=== PATIENT | male | born 1960 | race African-American/Black ===

== ENCOUNTER 2021-03-18 15:11 | Inpatient (IN) | payer MEDICARE ==
[~2021-03-18] VITALS: Ht 182.9 cm; Wt 98.6 kg
[2021-03-18 14:27] VITALS: BP 138/66
[2021-03-18] MEDS ORDERED: ATOR80TA72 PO (15:23)
[2021-03-18] MEDS ORDERED: BUME1TAB3 PO (15:23)
[2021-03-18] MEDS ORDERED: SPIR50TA4 PO (15:23)
[2021-03-18] MEDS ORDERED: CITA20TA6 PO (15:23)
[2021-03-18] MEDS ORDERED: RISP3TAB23 PO (15:23)
[2021-03-18] MEDS ORDERED: CARV25TA2 PO (15:23)
--- NOTE | 2021-03-18 15:55 | NUR ---
ADMISSION PT ARRIVED VIA EMS FROM [facility] ER. HE ARRIVES WITH IV POTASSIUM AND A HEPARIN GTT. HE TRANSFERS FROM [facility] TO [facility] VIA SHEET TRANSFER. TELE APPLIED, ET VS ASSESSED. SEE ASSESSMENT FOR ADDITIONAL DETAIL.
[2021-03-18 15:57] VITALS: BP 138/66
[2021-03-18] MEDS ORDERED: HEPARIN for IV BOLUS 10,000 UNIT/10 ML VIAL. IV PRN ×2 (16:00)
[2021-03-18] MEDS ORDERED: HEPARIN 25,000UTS/250ML PREMIX 250 ML IV PRN (16:00)
[2021-03-18 18:34] VITALS: BP 122/65
[2021-03-18 23:00] VITALS: BP 127/63
[2021-03-19 03:00] VITALS: BP 111/51
[2021-03-19 07:00] VITALS: BP 104/57
[2021-03-19] MEDS ORDERED: ASPIRIN ENTERIC COATED 81 MG TABLET.DR. PO SCH (08:00)
--- NOTE | 2021-03-19 10:45 | PDOC2 ---
CONSULT Date of Consult Date of Consult DATE: 03/19/21 TIME: 10:25 Reason for Consult Reason for Consult: CVA, right carotid dissection, bilateral common carotid stenosis Referring Physician Referring Physician: Dr. Gallo Identification/Chief Complaint Chief Complaint Right-sided weakness and slurred speech Source Source: Patient History of Present Illness Reason for Visit: This is a 60-year-old male presented with acute right-sided weakness and slurred speech that started yesterday afternoon. He presented to [facility] emergency room where code stroke was activated. He reports that his right-sided weakness has essentially resolved since its onset as well as his speech has improved but there is still some persistent slurring. It took several hours for the weakness to improve. He typically takes a baby aspirin but states that he may have stopped this recently. He has a history of a left carotid endarterectomy in 2013 at [facility] he also reports having a blood clot clot removed at that time although the intervention performed is not clear based on our discussion. He did not have a stroke prior to his carotid endarterectomy per his report. This is his first stroke event. He denies any preceding history of transient blindness. He does smoke and is still actively smoking up to a pack a day. He does take a statin for cholesterol. He denies any history of diabetes. He is ambulatory without significant limitation at baseline. Past Medical History Cardiovascular: HTN, Hyperlipidemia CENTRAL NERVOUS SYSTEM: Other (Carotid stenosis) GI: No pertinent hx Heme/Onc: No pertinent hx Hepatobiliary: No pertinent hx Psych: Depression Musculoskeletal: No pain Rheumatologic: No pertinent hx Infectious disease: No pertinent hx ENT: No pertinent hx Renal/: No pertinent hx Endocrine: No pertinent hx Dermatology: No pertinent hx Past Surgical History Past Surgical History Left carotid endarterectomy "Blood clot removed after surgery" in 2013 at [facility] Family History Family History: Hypertension Social History 1 pack per day ALCOHOL: rare Current Medications Current Medications Current Medications Info (FLU VACCINE SCREEN per RX) 1 each 1X MC ; Start 03/19/21 at 15:45; Stop 03/19/21 at 07:28; Status DC Heparin Sodium/ Dextrose 250 ml @ 15.7 mls/hr CONT PRN IV PER PROTOCOL Last administered on 03/19/21at 04:48; Start 03/18/21 at 16:00 Heparin Sodium (Porcine) (Heparin Sodium) 2,950 unit PRN Q6HRS PRN IV FOR UFH LEVEL LESS THAN 0.2; Start 03/18/21 at 16:00 Heparin Sodium (Porcine) (Heparin Sodium) 1,450 unit PRN Q6HRS PRN IV FOR UFH LEVEL 0.2 - 0.29; Start 03/18/21 at 16:00 Aspirin (Ecotrin) 81 mg DAILYWBKFT PO ; Start 03/19/21 at 08:00 Influenza Virus Vaccine Quadrival (Flulaval Quad Syringe) 0.5 ml ONCE ONCE VAX IM ; Start 03/20/21 at 09:00; Stop 03/20/21 at 09:01 Active Scripts Active Reported Bumetanide 1 Mg Tablet 1 Mg PO BID Risperdal (Risperidone) 3 Mg Tablet 3 Mg PO QHS Carvedilol 25 Mg Tablet 12.5 Mg PO BIDWMEALS Spironolactone 50 Mg Tablet 50 Mg PO DAILY Citalopram Hbr (Citalopram Hydrobromide) 20 Mg Tablet 20 Mg PO DAILY Atorvastatin Calcium 80 Mg Tablet 80 Mg PO QHS Allergies Allergies: Coded Allergies: No Known Drug Allergies (Unverified , 03/18/21) ROS General: No: Chills, Night Sweats, Fatigue, Malaise, Appetite, Other PSYCHOLOGICAL ROS: YES: Depression Eyes: No Blurry vision, No Decreased vision, No Double vision, No Dry eyes, No Excessive tearing, No Eye Pain, No Itchy Eyes, No Loss of vision, No Photophobia, No Scotomata, No Uses contacts, No Uses glasses, No Other HEENT: YES: Vocal changes ALLERGY AND IMMUNOLOGY: No: Hives, Insect Bite Sensitivity, Itchy/Watery Eyes, Nasal Congestion, Post Nasal Drip, Seasonal Allergies, Other Hematological and Lymphatic: YES: Blood Clots ENDOCRINE: No: Breast Changes, Galactorrhea, Hair Pattern Changes, Hot Flashes, Malaise/lethargy, Mood Swings, Palpitations, Polydipsia/polyuria, Skin Changes, Temperature Intolerance, Unexpected Weight Changes, Other Respiratory: No: Cough, Hemoptysis, Orthopnea, Pleuritic Pain, Shortness of luisana ath, SOB with excertion, Sputum Changes, Stridor, Tachypnea, Wheezing, Other Cardiovascular: No Chest Pain, No Palpitations, No Orthopnea, No Paroxysmal Noc. Dyspnea, No Edema, No Lt Headedness, No Other Gastrointestinal: No Nausea, No Vomiting, No Abdominal Pain, No Diarrhea, No Constipation, No Melena, No Hematochezia, No Other Genitourinary: No Dysuria, No Frequency, No Incontinence, No Hematuria, No Retention, No Discharge, No Urgency, No Pain, No Flank Pain, No Other, No , No , No , No , No , No , No Musculoskeletal: No Gait Disturbance, No Joint Pain, No Joint Stiffness, No Joint Swelling, No Muscle Pain, No Muscular Weakness, No Pain In:, No Swelling In:, No Other Physical Exam General: Alert, Oriented X3, No acute distress HEENT: Atraumatic, EOMI, Other (Previous left carotid incision well healed, normal range of motion with good extension of the neck, tongue midline) Lungs: Normal air movement Heart: Regular rate, Other (2+ palpable radial and femoral pulses bilaterally. Bilateral carotid pulses palpable. Nonpalpable popliteal and pedal pulses bilaterally.) Abdomen: Soft, No tenderness Skin: No rashes, No significant lesion Neuro: Normal gait, Strength at 5/5 X4 ext, Sensation intact, Cranial nerves 3- 12 NL, Other (Slurring of speech but able to speak coherently) Psych/Mental Status: Mental status NL MUSCULOSKELETAL: No deformity, No swelling Vitals VITALS Vital Signs Date Time Temp Pulse Resp B/P (MAP) Pulse Ox O2 Delivery O2 Flow Rate FiO2 03/19/21 07:00 98.1 68 18 104/57 (73) 94 Nasal Cannula 2.0 98.1 Labs Labs Laboratory Tests Test 03/18/21 20:10 03/19/21 02:50 Heparin Anti-Xa Act, Unfractionated 0.98 IU/mL (0.30-0.70) 1.03 IU/mL (0.30-0.70) Triglycerides Level 97 mg/dL (0-150) Cholesterol Level 121 mg/dL (0-200) LDL Cholesterol, Calculated 72 mg/dL (0-100) VLDL Cholesterol, Calculated 19 mg/dL (0-40) Non-HDL Cholesterol Calculated 91 mg/dL (0-129) HDL Cholesterol 30 mg/dL (40-60) Cholesterol/HDL Ratio 4.0 Laboratory Tests Test 03/18/21 20:10 03/19/21 02:50 Heparin Anti-Xa Act, Unfractionated 0.98 IU/mL (0.30-0.70) 1.03 IU/mL (0.30-0.70) Triglycerides Level 97 mg/dL (0-150) Cholesterol Level 121 mg/dL (0-200) LDL Cholesterol, Calculated 72 mg/dL (0-100) VLDL Cholesterol, Calculated 19 mg/dL (0-40) Non-HDL Cholesterol Calculated 91 mg/dL (0-129) HDL Cholesterol 30 mg/dL (40-60) Cholesterol/HDL Ratio 4.0 Images Images CTA reviewed of the head and neck which demonstrates 60% stenosis of the left common carotid artery with diffuse calcific atherosclerotic plaque there is a normal section of left common carotid just above the clavicle. The left carotid bifurcation is free of disease from previous endarterectomy his left vertebral origin is free of disease and he has a dominant left vertebral artery. His right common carotid artery is also diseased with a small focal dissection and 60% stenosis as well. There is also a moderate stenosis of the right internal carotid artery at the bifurcation. Assessment/Plan Assessment/Plan 1. Right sided weakness and slurred speech, presumed Left sided CVA. 2. Moderate stenosis bilateral CCA, left CCA likely symptomatic lesion 3. HTN 4. Tobacco abuse 5. HLD 6. Moderate stenosis right ICA Patient needs MRI to further evaluate extent of CVA. Patient needs echocardiogram and cardiology consultation to evaluate for cardioembolic source. If no evidence of cardioembolic source would recommend proceeding with left common carotid artery intervention within the next 14 days to reduce his risk of recurrent stroke. Redo left common carotid artery endarterectomy could be considered given his young age and smoking status. Transfemoral carotid artery stenting of the common carotid artery is another consideration and would carry a lower risk of cranial nerve injury however may carry a higher risk of intervention. We will obtain operative records from [facility] to aid with operative planning and decision making. We will plan intervention once above work-up completed. We will stop heparin and start dual antiplatelet therapy with aspirin and Plavix and Plavix load. Recommend continuing statin therapy XANDER MARIA MD Mar 19, 2021 10:45
[2021-03-19] MEDS ORDERED: CLOPIDOGREL BISULFATE 75 MG TABLET PO ONE (11:00)
--- NOTE | 2021-03-19 11:58 | PDOC2 ---
ML ARCE STRATEGIC CONSULTANT 03/19/21 1158: CARDIAC CONSULT DATE OF CONSULT Date of Consult DATE: 03/19/21 TIME: 11:23 REASON FOR CONSULT Reason for Consult: CVA, eval for cardioembolic source REFERRING PHYSICIAN Referring Physician: Avni SOURCE Source: Chart review, Patient HISTORY OF PRESENT ILLNESS HISTORY OF PRESENT ILLNESS This is a 60 yo male admitted for for stroke symptoms. This was right sided weakness and slurred speech started 03/18/2021. Initially he was at [facility]. He was driving and just did not feel right as his righ hand was not moving right. He started having slurred speech. No complains of chest pain, SOA, palpitations or dizziness. No prior hx of CAD nor stroke but had LCEA in 2012. No recreational drug use but continues to smoke tobacco. His right sided weakness is better and no further slurred speech. He has been vaccinated for covid-19 PAST MEDICAL HISTORY Cardiovascular: HTN, Hyperlipidemia, Other (carotid artery disease) Pulmonary: No pertinent hx CENTRAL NERVOUS SYSTEM: Other (No pertinent history) Psych: Depression Musculoskeletal: Osteoarthritis Rheumatologic: No pertinent hx Infectious disease: No pertinent hx ENT: No pertinent hx Renal/: No pertinent hx Endocrine: No pertinent hx Dermatology: No pertinent hx PAST SURGICAL HISTORY Past Surgical History: Other (left carotid endarterectomy; neck surgery; unclear details RLE clot removal) FAMILY HISTORY Family History: Heart Disease (sisters) SOCIAL HISTORY Smoke: <1 pack per day ALCOHOL: none Drugs: None Lives: with Family CURRENT MEDICATIONS CURRENT MEDICATIONS Current Medications Medications (Trade) Dose Ordered Sig/Madhu Route PRN Reason Start Time Stop Time Status Last Admin Dose Admin Heparin Sodium/ Dextrose 250 ml @ 15.7 mls/hr CONT PRN IV PER PROTOCOL 03/18/21 16:00 03/19/21 10:46 DC 03/19/21 04:48 ALLERGIES ALLERGIES: Coded Allergies: No Known Drug Allergies (Unverified , 03/18/21) ROS Review of System 14 point ROS evaluated with pertinent positives noted per HPI PHYSICAL EXAM General: Alert, Oriented X3, Cooperative, No acute distress HEENT: Atraumatic, Mucous membr. moist/pink Lungs: Clear to auscultation, Normal air movement Heart: Regular rate (SR), Normal S1, Normal S2, No murmurs Abdomen: Soft, No tenderness Extremities: No cyanosis, No edema Skin: No breakdown, No significant lesion Neuro: Normal speech, Sensation intact Psych/Mental Status: Mental status NL, Mood NL MUSCULOSKELETAL: Osteoarthritic changes both hands VITALS/I&O VITALS/I&O: Vital Signs Date Time Temp Pulse Resp B/P (MAP) Pulse Ox O2 Delivery O2 Flow Rate FiO2 03/19/21 07:00 98.1 68 18 104/57 (73) 94 Nasal Cannula 2.0 98.1 I & O 03/18/21 03/18/21 03/19/21 15:00 23:00 07:00 Intake Total 0 ml Output Total 700 ml 775 ml Balance -700 ml -775 ml LABS Lab: Laboratory Tests Test 03/18/21 20:10 03/19/21 02:50 Heparin Anti-Xa Act, Unfractionated 0.98 IU/mL (0.30-0.70) H 1.03 IU/mL (0.30-0.70) H Triglycerides Level 97 mg/dL (0-150) Cholesterol Level 121 mg/dL (0-200) LDL Cholesterol, Calculated 72 mg/dL (0-100) VLDL Cholesterol, Calculated 19 mg/dL (0-40) Non-HDL Cholesterol Calculated 91 mg/dL (0-129) HDL Cholesterol 30 mg/dL (40-60) L Cholesterol/HDL Ratio 4.0 ASSESSMENT/PLAN ASSESSMENT/PLAN 1. suspect Acute CVA with dysarthria and right side hemiparesis. Appears to be resolved. possibly from significant carotid artery disease 2. HTN: controlled 3. HLP 4. Hx of left carotid endarterectomy 5. Carotid artery disease: significant to left than right, will likely need surgery 6. Tobaccoism with possible COPD Recommendations 1. On ASA/plavix when able to swallow, on heparin drip per vascular surgery. Consult neurology 2. TTE with bubble study. Awaiting MRI. Monitor rhythm, no arrhythmia so far. 3. FLP will start on statin 4. Cardiac risk index low to moderate risk for perioperative CV events for noncardiac surgery 5. MCOT is a consideration ELBA AUGUSTIN MD 03/20/21 6932: CARDIAC CONSULT ASSESSMENT/PLAN ASSESSMENT/PLAN Patient seen and examined 03/19/2021. Agree with [employer] ERP DEVELOPER's assessment and plan. Patient with acute left MCA stroke Telemetry did not show any significant arrhythmias so far 2D echo showed normal LV systolic function and bubble study negative for intracardiac shunt Carotid duplex scan showed significant carotid artery stenosis Vascular surgery considering possible endarterectomy in 2 weeks Thank you for your consultation ML ARCE APRN Mar 19, 2021 11:58 ELBA AUGUSTIN MD Mar 20, 2021 08:32
--- NOTE | 2021-03-19 12:27 | RAD ---
EXAMINATION: MRI brain without IV contrast INDICATION: Reason: CVA, aphasia / Spl. Instructions: / History: COMPARISON: None TECHNIQUE: Multiplanar multi-sequential MRI of the brain. FINDINGS: There is an area of restricted diffusion in the left MCA distribution involving the left parietal ope rculum consistent with acute infarct. There is expected associated edema corresponding to the area of acute infarct. There is no evidence of hemorrhage. There is no significant mass effect or midline sh ift. The ventricles are normal in size and position. There is no evidence of extraaxial fluid collect ion. Expected arterial flow-voids are present. There is no abnormal contrast enhancement. The paranasal sinuses, mastoid air cells, and middle ears are clear. The orbital contents appear with in normal limits. IMPRESSION: Acute infarct in the left MCA distribution involving the left parietal operculum area. These findings were discussed with the patient's nurse at 12:19 PM on 03/19/[address] Linder. Electronically signed by: Eyad Linder DO (03/19/2021 12:25 PM) [facility]
--- NOTE | 2021-03-19 12:38 | PDOC2 ---
NEUROLOGY CONSULT Date of Service DOS: DATE: 03/19/21 TIME: 12:38 Reason for Consult Reason for Consult: Possible stroke Referring Physician Referring Physician: Dr. Gallo Source Source: Chart review, Patient History of Present Illness History of Present Illness The patient is a 60-year-old right-handed male who presented yesterday to [facility] emergency department found by family members with dysarthria and right- sided weakness. Last known normal was evening of 03/17. Family told Dr. Lindquist that there is a history of stroke. Patient denies any history of stroke. He is feeling much better today. He wants to go home. He did have abnormal CT angiogram and was placed on heparin at recommendation of vascular surgery. Patient denies headache, diplopia, dysphagia, dysarthria, numbness, or weakness at present. There was never any neck pain, particularly on the right side of the neck, he has had no recent neck injury. He has not been taking aspirin daily for several months, he is supposed to take it for his cardiac disease, he understands. He has been taking his cholesterol medication faithfully, though. Past Medical History Cardiovascular: CAD, CHF Psych: Schizophrenia Past Surgical History Past Surgical History: Other (Left carotid endarterectomy) Family History Family History: CAD Social History Social History Disabled due to schizophrenia, no alcohol or tobacco, lives on his own, family checks on him Current Medications Current Medications Current Medications Info (FLU VACCINE SCREEN per RX) 1 each 1X MC ; Start 03/19/21 at 15:45; Stop 03/19/21 at 07:28; Status DC Heparin Sodium/ Dextrose 250 ml @ 15.7 mls/hr CONT PRN IV PER PROTOCOL Last administered on 03/19/21at 04:48; Start 03/18/21 at 16:00; Stop 03/19/21 at 10:46; Status DC Heparin Sodium (Porcine) (Heparin Sodium) 2,950 unit PRN Q6HRS PRN IV FOR UFH LEVEL LESS THAN 0.2; Start 03/18/21 at 16:00; Stop 03/19/21 at 10:46; Status DC Heparin Sodium (Porcine) (Heparin Sodium) 1,450 unit PRN Q6HRS PRN IV FOR UFH LEVEL 0.2 - 0.29; Start 03/18/21 at 16:00; Stop 03/19/21 at 10:46; Status DC Aspirin (Ecotrin) 81 mg DAILYWBKFT PO ; Start 03/19/21 at 08:00 Influenza Virus Vaccine Quadrival (Flulaval Quad Syringe) 0.5 ml ONCE ONCE VAX IM ; Start 03/20/21 at 09:00; Stop 03/20/21 at 09:01 Clopidogrel Bisulfate (Plavix) 300 mg 1X ONCE PO ; Start 03/19/21 at 11:00; Stop 03/19/21 at 11:01; Status DC Clopidogrel Bisulfate (Plavix) 75 mg DAILYWBKFT PO ; Start 03/20/21 at 08:00 Atorvastatin Calcium (Lipitor) 40 mg QHS PO ; Start 03/19/21 at 21:00 Active Scripts Active Reported Bumetanide 1 Mg Tablet 1 Mg PO BID Risperdal (Risperidone) 3 Mg Tablet 3 Mg PO QHS Carvedilol 25 Mg Tablet 12.5 Mg PO BIDWMEALS Spironolactone 50 Mg Tablet 50 Mg PO DAILY Citalopram Hbr (Citalopram Hydrobromide) 20 Mg Tablet 20 Mg PO DAILY Atorvastatin Calcium 80 Mg Tablet 80 Mg PO QHS Allergies Allergies: Coded Allergies: No Known Drug Allergies (Unverified , 03/18/21) ROS Review of System Negative for fever, chills, weight loss, shortness of breath, chest pain, indigestion, hematochezia, melena, and dysuria. Full 14-point review of systems is negative. Physical Exam Physical Examination General: Well-developed, well-nourished, black male, in no acute distress HEENT: Normocephalic andatraumatic. Temporal arteriespulsatile and nontender. Neck: Supple without bruit, no meningismus Musculoskeletal: Stability:see neurologic. Gait exam:see neurologic. Tone:see neurologic.Strength:see neurologic. Neurological: Mental Status:intact, orientation, memory, attention span/concentration, language, fund of knowledge normal. Speech dysarthric. Poor historian. Cranial Nerves:Pupils equal and reactive to light, extraocular movements areintact, visual adams are full to confrontation. Facial sensation is normal. There is no facial asymmetry. Vestibulo-ocular reflex is intact. Palate elevates and tongue protrudes in midline. All other cranial related problems are negative except as mentioned before.Reflexes:2+ and symmetric with flexor plantar responses. Motor:5/5 strength with normal tone and bulk. Slight right pronator drift. Coordination:Finger-nose finger and nqmi-ct-qkyn testing are normal. Rapid alternating movements and fine finger movements are intact. Gait:Normal, including tandem. Sensory:Normal pinprick, vibration, light touch, proprioception. Vitals VITALS Vital Signs Date Time Temp Pulse Resp B/P (MAP) Pulse Ox O2 Delivery O2 Flow Rate FiO2 03/19/21 07:00 98.1 68 18 104/57 (73) 94 Nasal Cannula 2.0 98.1 Labs Labs Laboratory Tests Test 03/18/21 20:10 03/19/21 02:50 Heparin Anti-Xa Act, Unfractionated 0.98 IU/mL (0.30-0.70) 1.03 IU/mL (0.30-0.70) Triglycerides Level 97 mg/dL (0-150) Cholesterol Level 121 mg/dL (0-200) LDL Cholesterol, Calculated 72 mg/dL (0-100) VLDL Cholesterol, Calculated 19 mg/dL (0-40) Non-HDL Cholesterol Calculated 91 mg/dL (0-129) HDL Cholesterol 30 mg/dL (40-60) Cholesterol/HDL Ratio 4.0 Laboratory Tests Test 03/18/21 20:10 03/19/21 02:50 Heparin Anti-Xa Act, Unfractionated 0.98 IU/mL (0.30-0.70) 1.03 IU/mL (0.30-0.70) Triglycerides Level 97 mg/dL (0-150) Cholesterol Level 121 mg/dL (0-200) LDL Cholesterol, Calculated 72 mg/dL (0-100) VLDL Cholesterol, Calculated 19 mg/dL (0-40) Non-HDL Cholesterol Calculated 91 mg/dL (0-129) HDL Cholesterol 30 mg/dL (40-60) Cholesterol/HDL Ratio 4.0 Images Images MRI brain without IV contrast INDICATION: Reason: CVA, aphasia / Spl. Instructions: / History: COMPARISON: None TECHNIQUE: Multiplanar multi-sequential MRI of the brain. FINDINGS: There is an area of restricted diffusion in the left MCA distribution involving the left parietal operculum consistent with acute infarct. There is expected associated edema corresponding to the area of acute infarct. There is no evidence of hemorrhage. There is no significant mass effect or midline shift. The ventricles are normal in size and position. There is no evidence of extraaxial fluid collection. Expected arterial flow-voids are present. There is no abnormal contrast enhancement. The paranasal sinuses, mastoid air cells, and middle ears are clear. The orbital contents appear within normal limits. IMPRESSION: Acute infarct in the left MCA distribution involving the left parietal operculum area. These findings were discussed with the patient's nurse at 12:19 PM on 03/19/[address] [facility]: CT HEAD INDICATION: Reason: CODE STROKE, FACIAL DROOP, SLURRED SPEECH / Spl. Instructions: / History: COMPARISON: None Available. Exposure: One or more of the following individualized dose reduction techniques were utilized for this examination: 1. Automated exposure control 2. Adjustment of the mA and/or kV according to patient size 3. Use of iterative reconstruction technique TECHNIQUE: 5 mm contiguous axial images were obtained from the skull base to the vertex in both bone and soft tissue algorithm. FINDINGS: Small hypodensity identified in the right cerebellum likely old infarct . No evidence of acute intracranial hemorrhage. No extra-axial fluid colle ctions. No mass effect or midline shift. Ventricular size is appropriate. Basal cisterns are patent. No fractures identified.Lujan-white differentiation is preserved.Globes and orbits are within normal limits. Paranasal sinuses and mastoid air cells are clear. IMPRESSION: 1. No acute intracranial findings. 2. Small hypodensity identified in the right cerebellum likely old infarct. Consider follow-up MRI if symptoms persist. CT angiography of the head and neck INDICATION: Right-sided weakness, slurred speech COMPARISON: None TECHNIQUE: Axial CT imaging of the head and neck utilizing angiography protocol and performed after the intravenous administration of contrast. Multiplanar reformats and 3D MIP acquisitions were obtained. Encountered areas of stenosis are measured per NASCET criteria. One or more of the following individualized dose reduction techniques were utilized for this examination: 1. Automated exposure control 2. Adjustment of the mA and/or kV according to patient size 3. Use of iterative reconstruction technique. FINDINGS: CTA NECK: Arch/Proximal Great Vessels: Heart is normal configuration. There is mild calcified atherosclerosis. Innominate artery origin is patent. There is mild narrowing of the left common carotid artery origin. Mild narrowing of the left subclavian artery origin and proximal left renal artery due to calcifications. Carotid Bifurcation/Cervical ICA: There is calcified atherosclerosis throughout the bilateral common carotid arteries. There is about 75 percent stenosis of the mid right common carotid artery due to calcifications (image 585, series 7), with milder, 40-50 percent narrowing over a 1.5 cm length proximal to this. Just distal to the stenosis, there is a linear filling defect in the mid right common carotid artery measuring 5 mm in length, suspicious for an intimal flap/focal dissection of indeterminate age (image 545, series 7). There is 50 percent narrowing of the right internal carotid artery origin due to calcifications. The rest of the cervical right internal carotid artery is normal in caliber and patent. There is extensive calcified atherosclerosis in the left common carotid artery with 70 percent focal stenosis of the mid left common carotid artery (image [id number] [phone], series 7) and milder, 50 percent narrowing over an approximately 4 cm length proximal to this. No narrowing of the left internal carotid artery . Vertebral Arteries: The right vertebral artery is nonvisualized from just beyond the origin to the level of 5-C6 likely due to chronic occlusion. It becomes reconstituted around the level of C5-C6 and is normal caliber and patent. The rest of the cervical portion. The left ureter is normal in caliber and patent.: CTA HEAD: Posterior Circulation: The intradural vertebral arteries, basilar artery, superior cerebellar arteries, and posterior cerebral arteries are normal in caliber and patent. Anterior Circulation: Mild calcified atherosclerosis in the intracranial internal carotid arteries without significant narrowing. The middle cerebral arteries are normal in caliber and patent. Anterior cerebral arteries are normal in caliber and patent. The anterior communicating artery. There is a small right and diminutive left posterior communicating artery. Veins: Dural venous sinuses are patent. MISCELLANEOUS: Mild emphysema and patchy opacities in the lung apices, nonspecific. There is moderate degenerative disc disease in cervical spine. IMPRESSION: 1. Linear filling defect in the mid right common carotid artery suspicious for intimal flap/focal dissection, age indeterminate. 2. Extensive calcified atherosclerosis in the common carotid arteries resulting in 75 percent focal stenosis in the mid right common carotid artery and 70 percent focal stenosis in the mid left common carotid artery, and milder narrowing elsewhere in the common carotid arteries. 3. 50 percent narrowing of the right internal carotid artery origin. No significant narrowing of the left internal carotid artery origin. 4. 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 5. Emphysema and mild opacities in the lung apices, nonspecific. Assessment/Plan Assessment/Plan Impression: Left middle cerebral artery acute stroke, symptoms from which he has made a rapid recovery Possible right mid right common carotid artery intimal flap/focal dissection, but no clinical evidence of dissection and stroke is on other side 75 percent focal stenosis in the mid right common carotid artery and 70 percent focal stenosis in the mid left common carotid artery, and milder narrowing elsewhere in the common carotid arteries. 50 percent narrowing of the right internal carotid artery origin. No significant narrowing of the left internal carotid artery origin. 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 Hypocalcemia, hypokalemia, hypomagnesemia History of schizophrenia Favorable lipid profile already on a statin Recommendations: As I doubt he had a carotid dissection and definitely has an acute stroke, I believe the risks outweigh the benefits of heparin and have stopped it Patient is essentially paulo to aspirin as he has not been taking it in a while, therefore I would just use aspirin or not clopidogrel. Also we need to check swallowing first anyway, so I have ordered aspirin rectal suppository Rehabilitation modalities Agree with vascular surgery plans for endarterectomy in the next 2 weeks Also see stroke orders. Thank you for letting me help with the patient's care. NADIA FISCHER MD Mar 19, 2021 12:38
[2021-03-19] MEDS ORDERED: ASPIRIN RECTAL 300 MG SUPP. PR SCH (12:45)
[2021-03-19] MEDS: ASPIRIN ENTERIC COATED 81 MG TABLET.DR. PO SCH (13:29)
--- NOTE | 2021-03-19 13:37 | NUR ---
Bedside Swallow Evaluation completed. Please refer to full report in interventions section for additional information. Impressions: Mild oropharyngeal dysphagia w/ subtle s/s possible aspiration w/ trials of thin liquids. No s/s aspiration were noted w/ honey thick liquids, puree and solids. Hyolaryngeal excursion mildly decreased via palp. Lingual movements mildly decreased as well impacting both swallow efficiency as well as speech production as pt is mildly dysarthric. Diet modification of solids and liquids is recommended. Recommendations: Dysphagia II diet w/ honey thick liquids, no straws. ST f/u for dysphagia and screen speech. D/w RN, education provided to pt, precautions posted in room.
--- NOTE | 2021-03-19 14:15 | NUR ---
SS following for discharge planning. SS reviewed pt chart and discussed with pt RN. Pt is from home with spouse and is currently requiring oxygen at two liters nasal canula. Neurology, Vascular, and Cardiology consulted. Pt on PO diet. PT/OT ordered. SS will continue to follow for discharge planning .
[2021-03-19 15:00] VITALS: BP 136/69
[2021-03-19] MEDS ORDERED: INFLUENZA VAX SCREEN BY RX. MC SCH (15:45)
--- NOTE | 2021-03-19 17:19 | CARD ---
MR#: [id number] Date of Study: 03/19/2021 Ordering Physician: ML ARCE, Referring Physician: ML ARCE, Tech: Sharlene Saab, [facility] APPROVED REPORT EXAM: Two-dimensional and M-mode echocardiogram with Doppler and color Doppler. Other Information Quality : AverageHR: 60bpm INDICATION CVA/TIA Echo Enhancing Agent Indication: Rule Out Septal Defect Agent/Amount Used: Agitated Saline 10mL 2D DIMENSIONS RVDd3.3 (2.9-3.5cm)Left Atrium(2D)3.8 (1.6-4.0cm) IVSd0.8 (0.7-1.1cm)Aortic Root(2D)3.0 (2.0-3.7cm) LVDd6.0 (3.9-5.9cm)LVOT Diameter2.1 (1.8-2.4cm) PWd0.9 (0.7-1.1cm)LVDs3.9 (2.5-4.0cm) FS (%) 34.9 %SV114.7 ml LVEF(%)63.3 (>50%) Aortic Valve AoV Peak Saul.135.6cm/sAoV VTI28.6cm AO Peak GR.7.4mmHgLVOT VTI 16.29cm AO Mean GR.4mmHgAI P 1/2 [id number] Mitral Valve MV E Ifqtejpg00.5cm/sMV E Peak Gr.2mmHg MV DECEL [id number] A Ntuvvofs98.4cm/s MV E Mean Gr.1mmHgE/A Ratio1.1 TDI Lateral E' P. V7.72cm/sMedial E' P. V7.85cm/s E/Lateral E'7.8E/Medial E'7.7 Tricuspid Valve TR P. Xomrbyhf597pz/sRAP [id number] TR Peak Gr.48jrNpUPLG75iiSw Pulmonary Vein S1 Tycmcups93.8cm/sS2 Wczpycgu93.16cm/s D2 Ofxnmqph09.2cm/s LEFT VENTRICLE The left ventricle is normal size. There is normal left ventricular wall thickness. The left ventricu lar systolic function is normal. The ejection fraction is estimated at 55%. There is normal LV segmen errlo wall motion. The left ventricular diastolic function and filling is normal for age. RIGHT VENTRICLE The right ventricle is normal size. There is normal right ventricular wall thickness. The right ventr icular systolic function is normal. ATRIA The left atrium size is normal. The right atrium size is normal. The interatrial septum is intact wit h no evidence for an atrial septal defect or patent foramen ovale as noted on 2-D or Doppler imaging. AORTIC VALVE The aortic valve is normal in structure and function. Doppler and Color Flow revealed mild aortic reg urgitation. There is no significant aortic valvular stenosis. Calculated aortic valve area is 1.95 cm 2 with maximum pressure gradient of 11 mmHg and mean pressure gradient of 6 mmHg. MITRAL VALVE The mitral valve is normal in structure and function. There is no evidence of mitral valve prolapse. There is no mitral valve stenosis. Doppler and Color-flow revealed trace mitral regurgitation. TRICUSPID VALVE The tricuspid valve is normal in structure and function. Doppler and Color Flow revealed trace tricus pid regurgitation with an estimated PAP of 28 mmHg. There is no tricuspid valve stenosis. PULMONIC VALVE The pulmonic valve is not well visualized. Doppler and Color Flow revealed no pulmonic valvular regur gitation. GREAT VESSELS The aortic root is normal in size. The IVC is normal in size and collapses >50% with inspiration. PERICARDIAL EFFUSION There is no evidence of significant pericardial effusion. Critical Notification Critical Value: No <Conclusion> The left ventricular systolic function is normal. The ejection fraction is estimated at 55%. There is normal LV segmental wall motion. Mild aortic regurgitation. Trace mitral regurgitation. Trace tricuspid regurgitation with an estimated PAP of 28 mmHg. There is no evidence of significant pericardial effusion. Signed by : Jesus Russell, Electronically Approved : 03/19/2021 17:18:48
[2021-03-19 19:00] VITALS: BP 90/54
[2021-03-19] MEDS: CARVEDILOL 12.5 MG TABLET. PO SCH (20:00)
[2021-03-19] MEDS: risperiDONE 1 MG TABLET. PO SCH (21:00)
[2021-03-19] MEDS: ATORVASTATIN CALCIUM 40 MG TABLET. PO SCH (21:00)
[2021-03-19] MEDS ORDERED: CAPT25TA3 PO (22:05)
--- NOTE | 2021-03-19 22:20 | NUR ---
Went to give patient his HS meds, patient stated "I already took some of my meds out of that bag" upon looking in patients bag patient had all of his home medications. Patient was able to tell which meds he took, all were meds he was scheduled to take tonight. Placed all patient meds in security bag and sent to pharmacy.
[2021-03-19 23:00] VITALS: BP 91/50
[2021-03-20] VITALS (7 sets, daily range): BP systolic 94–139; BP diastolic 51–72
[2021-03-20 05:13] LABS: HEMOGLOBIN A1C 6.2 % (4.8-5.6)
[2021-03-20] MEDS ORDERED: CLOPIDOGREL BISULFATE 75 MG TABLET PO SCH (08:00)
--- NOTE | 2021-03-20 08:54 | PDOC ---
PROGRESS NOTES Date of Service DATE: 03/20/21 TIME: 08:49 Assessment Left MCA distribution involving the left parietal operculum area, symptoms from which he has made a rapid recovery Possible right mid right common carotid artery intimal flap/focal dissection, but no clinical evidence of dissection and stroke is on other side 75 percent focal stenosis in the mid right common carotid artery and 70 percent focal stenosis in the mid left common carotid artery, and milder narrowing elsewhere in the common carotid arteries. 50 percent narrowing of the right internal carotid artery origin. No significant narrowing of the left internal carotid artery origin. 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 Hypocalcemia, hypokalemia, hypomagnesemia History of schizophrenia Favorable lipid profile already on a statin Passed his swallow study, needs dysphagia diet Plan Aspirin and statin Rehabilitation modalities Agree with vascular surgery plans for endarterectomy. I suggest we keep him over the weekend and schedule the surgery for early next week. Discussed with Dr. Gallo Subjective No complaints, denies pain Objective Vital Signs Date Time Temp Pulse Resp B/P (MAP) Pulse Ox O2 Delivery O2 Flow Rate FiO2 03/20/21 07:00 98.6 75 18 139/60 (86) 91 Room Air 98.6 03/19/21 20:00 2.0 Intake and Output 03/20/21 07:00 Intake Total 280 ml Output Total 100 ml Balance 180 ml Intake Oral 280 ml Output Urine Total 100 ml # Voids 1 # Bowel Movements 1 PHYSICAL EXAM Alert. Oriented to time, place and person. Speech dysarthric PERRL. EOMI. CN: no focal findings. Muscle tone: normal. Muscle strength: 5/5, but there is a right pronator drift DTR: 2+ Plantar reflex: Flexor Gait: not examined in bed. Sensory exam: no abnormal findings. No cerebellar signs elicited. Review of Relevant I have reviewed the following items rachael (where applicable) has been applied. Labs Laboratory Tests Test 03/18/21 20:10 03/19/21 02:50 03/19/21 12:10 Heparin Anti-Xa Act, Unfractionated 0.98 IU/mL (0.30-0.70) 1.03 IU/mL (0.30-0.70) 0.37 IU/mL (0.30-0.70) Hemoglobin A1c 6.2 % (4.8-5.6) Triglycerides Level 97 mg/dL (0-150) Cholesterol Level 121 mg/dL (0-200) LDL Cholesterol, Calculated 72 mg/dL (0-100) VLDL Cholesterol, Calculated 19 mg/dL (0-40) Non-HDL Cholesterol Calculated 91 mg/dL (0-129) HDL Cholesterol 30 mg/dL (40-60) Cholesterol/HDL Ratio 4.0 Laboratory Tests Test 03/19/21 12:10 Heparin Anti-Xa Act, Unfractionated 0.37 IU/mL (0.30-0.70) Medications Current Medications Info (FLU VACCINE SCREEN per RX) 1 each 1X MC ; Start 03/19/21 at 15:45; Stop 03/19/21 at 07:28; Status DC Heparin Sodium/ Dextrose 250 ml @ 15.7 mls/hr CONT PRN IV PER PROTOCOL Last administered on 03/19/21at 04:48; Start 03/18/21 at 16:00; Stop 03/19/21 at 10:46; Status DC Heparin Sodium (Porcine) (Heparin Sodium) 2,950 unit PRN Q6HRS PRN IV FOR UFH LEVEL LESS THAN 0.2; Start 03/18/21 at 16:00; Stop 03/19/21 at 10:46; Status DC Heparin Sodium (Porcine) (Heparin Sodium) 1,450 unit PRN Q6HRS PRN IV FOR UFH LEVEL 0.2 - 0.29; Start 03/18/21 at 16:00; Stop 03/19/21 at 10:46; Status DC Aspirin (Ecotrin) 81 mg DAILYWBKFT PO ; Start 03/19/21 at 08:00; Stop 03/19/21 at 12:43; Status DC Influenza Virus Vaccine Quadrival (Flulaval Quad [id number] Syringe) 0.5 ml ONCE ONCE VAX IM ; Start 03/20/21 at 09:00; Stop 03/20/21 at 09:01 Clopidogrel Bisulfate (Plavix) 300 mg 1X ONCE PO ; Start 03/19/21 at 11:00; Stop 03/19/21 at 12:40; Status DC Clopidogrel Bisulfate (Plavix) 75 mg DAILYWBKFT PO ; Start 03/20/21 at 08:00; Stop 03/19/21 at 12:40; Status DC Atorvastatin Calcium (Lipitor) 40 mg QHS PO ; Start 03/19/21 at 21:00 Aspirin (Aspirin Rectal Supp) 300 mg DAILY NC ; Start 03/19/21 at 12:45; Stop 03/19/21 at 12:59; Status DC Aspirin (Ecotrin) 81 mg DAILYWBKFT PO Last administered on 03/19/21at 13:29; Start 03/19/21 at 13:00 Bumetanide (Bumex) 1 mg BID92 PO ; Start 03/20/21 at 09:00 Citalopram Hydrobromide (CeleXA) 20 mg DAILY PO ; Start 03/20/21 at 09:00 Carvedilol (Coreg) 12.5 mg BIDWMEALS PO ; Start 03/19/21 at 20:00 Risperidone (RisperDAL) 3 mg QHS PO ; Start 03/19/21 at 21:00 Spironolactone (Aldactone) 50 mg DAILY PO ; Start 03/20/21 at 09:00 Active Scripts Active Reported Captopril 25 Mg Tablet 25 Mg PO BID Bumetanide 1 Mg Tablet 1 Mg PO BID Risperdal (Risperidone) 3 Mg Tablet 3 Mg PO QHS Carvedilol 25 Mg Tablet 12.5 Mg PO BIDWMEALS Spironolactone 50 Mg Tablet 50 Mg PO DAILY Citalopram Hbr (Citalopram Hydrobromide) 20 Mg Tablet 20 Mg PO DAILY Atorvastatin Calcium 80 Mg Tablet 80 Mg PO QHS Vitals/I & O Vital Sign - Last 24 Hours 03/19/21 03/19/21 03/19/21 03/19/21 15:00 19:00 20:00 23:00 Temp 97.6 98.4 98.4 97.6 98.4 98.4 Pulse 70 80 69 Resp 18 18 18 B/P (MAP) 136/69 (91) 90/54 (66) 91/50 (64) Pulse Ox 91 96 95 O2 Delivery Room Air Room Air Nasal Cannula Room Air O2 Flow Rate 2.0 03/20/21 03/20/21 03:00 07:00 Temp 98.5 98.6 98.5 98.6 Pulse 67 75 Resp 19 18 B/P (MAP) 102/51 (68) 139/60 (86) Pulse Ox 91 91 O2 Delivery Room Air Room Air Intake and Output 03/19/21 03/19/21 03/20/21 15:00 23:00 07:00 Intake Total 180 ml 100 ml 0 ml Output Total 100 ml Balance 80 ml 100 ml 0 ml Images MRI brain without IV contrast INDICATION: Reason: CVA, aphasia / Spl. Instructions: / History: COMPARISON: None TECHNIQUE: Multiplanar multi-sequential MRI of the brain. FINDINGS: There is an area of restricted diffusion in the left MCA distribution involving the left parietal operculum consistent with acute infarct. There is expected associated edema corresponding to the area of acute infarct. There is no evidence of hemorrhage. There is no significant mass effect or midline shift. The ventricles are normal in size and position. There is no evidence of extraaxial fluid collection. Expected arterial flow-voids are present. There is no abnormal contrast enhancement. The paranasal sinuses, mastoid air cells, and middle ears are clear. The orbital contents appear within normal limits. IMPRESSION: Acute infarct in the left MCA distribution involving the left parietal operculum area. Echocardiogram: LEFT VENTRICLE The left ventricle is normal size. There is normal left ventricular wall thickness. The left ventricular systolic function is normal. The ejection fraction is estimated at 55%. There is normal LV segmental wall motion. The left ventricular diastolic function and filling is normal for age. RIGHT VENTRICLE The right ventricle is normal size. There is normal right ventricular wall thickness. The right ventricular systolic function is normal. ATRIA The left atrium size is normal. The right atrium size is normal. The interatrial septum is intact with no evidence for an atrial septal defect or patent foramen ovale as noted on 2-D or Doppler imaging. AORTIC VALVE The aortic valve is normal in structure and function. Doppler and Color Flow revealed mild aortic regurgitation. There is no significant aortic valvular stenosis. Calculated aortic valve area is 1.95 cm2 with maximum pressure gradient of 11 mmHg and mean pressure gradient of 6 mmHg. MITRAL VALVE The mitral valve is normal in structure and function. There is no evidence of mitral valve prolapse. There is no mitral valve stenosis. Doppler and Color-flow revealed trace mitral regurgitation. TRICUSPID VALVE The tricuspid valve is normal in structure and function. Doppler and Color Flow revealed trace tricuspid regurgitation with an estimated PAP of 28 mmHg. There is no tricuspid valve stenosis. PULMONIC VALVE The pulmonic valve is not well visualized. Doppler and Color Flow revealed no pulmonic valvular regurgitation. GREAT VESSELS The aortic root is normal in size. The IVC is normal in size and collapses >50% with inspiration. PERICARDIAL EFFUSION There is no evidence of significant pericardial effusion. Critical Notification Critical Value: No <Conclusion> The left ventricular systolic function is normal. The ejection fraction is estimated at 55%. There is normal LV segmental wall motion. Mild aortic regurgitation. Trace mitral regurgitation. Trace tricuspid regurgitation with an estimated PAP of 28 mmHg. There is no evidence of significant pericardial effusion. Bubble study negative for intracardiac shunt. Justicifation of Admission Dx: Justifications for Admission: Justification of Admission Dx: Yes Stroke - Ischemic: Stroke-Ischemic NADIA FISCHER MD Mar 20, 2021 08:53
[2021-03-20] MEDS: BUMETANIDE 1 MG TABLET. PO SCH ×2 (08:57→13:48)
[2021-03-20] MEDS: CARVEDILOL 12.5 MG TABLET. PO SCH ×2 (08:57→17:44)
[2021-03-20] MEDS: ASPIRIN ENTERIC COATED 81 MG TABLET.DR. PO SCH (08:57)
[2021-03-20] MEDS: CITALOPRAM 20 MG TABLET. PO SCH (08:57)
[2021-03-20] MEDS: SPIRONOLACTONE 25 MG TABLET PO SCH (08:58)
[2021-03-20] MEDS ORDERED: FLU VACC QUAD 21-22 (6MOS+) PF 0.5 ML SYRINGE. VAX IM ONE (09:00)
--- NOTE | 2021-03-20 09:41 | PN ---
DATE: 03/20/2021 SUBJECTIVE: The patient is resting slightly propped up in bed, in no apparent distress. He seemed to be more awake, alert and able to express himself. He denied any headache, tingling or numbness. He continued to have some slurring of speech and mild right-sided weakness. He was seen in consultation by the neurologist, vascular surgeon as well as the industrial relations commissioner. He has had an echocardiogram done, which showed that the patient's left ventricular systolic function is normal, ejection fraction estimated to be at 55%. There is normal left ventricular segmental wall motion. Mild aortic regurgitation, trace mitral regurgitation, trace tricuspid regurgitation with an estimated pulmonary artery pressure of 28 mmHg. There is no evidence of significant pericardial effusion and bubble study negative for intracardiac shunt. The vascular surgeon stated that if there is no evidence of cardioembolic source, he would recommend proceeding with left common carotid artery intervention within the next 14 days to reduce his risk of recurrent stroke, redo left common carotid artery endarterectomy could be considered given his young age and smoking status, stenting the common carotid artery is another consideration and would carry a lower risk of cranial nerve injury; however, may carry a higher risk of intervention. Apparently, his heparin was stopped and he is now on dual antiplatelet therapy in the form of aspirin and Plavix, with a Plavix load. PHYSICAL EXAMINATION: GENERAL: When I saw him this morning, he looked well and was clearly in no apparent respiratory distress. No pallor, jaundice, cyanosis or thyromegaly. No jugular venous distention. No lower limb edema. VITAL SIGNS: His heart rate was 75, blood pressure was 139/60, temperature 98.6, respiratory rate was 18 and oxygen saturation was 91% on room air. HEAD, EYES, EARS, NOSE, AND THROAT: Normocephalic, atraumatic. NECK: Supple. HEART: Showed normal first and second heart sounds. No gallop, rub or murmur. CHEST: Clear to auscultation, no crepitation or rhonchi. ABDOMEN: Slightly distended, soft, nontender. NEUROLOGIC: He is awake, alert, responding appropriately. All his cranial nerves intact. He continued to have mild residual right-sided weakness and slurring of speech. LABORATORY DATA: His serum triglycerides were 97, total cholesterol 121, LDL was 72, VLDL was 19 and HDL cholesterol was 30 and the ratio was 4. PLAN: To continue with aspirin and Plavix. His heparin was discontinued. Continue with physical and occupational therapy. According to the neurologist, he would like him to be here in the hospital and might have his endarterectomy done next week. MANDEEP DR: Rosalind TID: [id number]
--- NOTE | 2021-03-20 09:46 | HP ---
DATE OF SERVICE: 03/20/2021 ADMIT DATE: 03/18/2021 HISTORY OF PRESENT ILLNESS: The patient is a 60-year-old male patient who was brought to the Emergency Department of [facility] via EMS with reports of a code stroke. He was found by his family members to be confused with slurred speech and right-sided weakness. The patient does have history of prior CVA with unknown deficit. No known trauma. Unclear if the patient is on any blood thinner. On arrival, the patient has expressive aphasia and dysarthria. The patient was extensively investigated in the Emergency Room of [facility] and has had lab work as well as imaging studies. A CT scan of the head showed no acute intracranial findings, small hypodensity identified in the right cerebellum, likely an old infarct. He did have a CT angio of the head and neck, which showed that the patient has linear filling defect in the mid right common carotid artery, suspicious for intimal flap or focal dissection, age indeterminate. He has extensive calcified atherosclerosis in the common carotid arteries resulting in 75% stenosis in the mid right common carotid artery and 70% focal stenosis in the mid left common carotid artery and milder narrowing elsewhere in the common carotid arteries, has a 50% narrowing of the right internal carotid artery origin. No significant narrowing of the left internal carotid artery origin. Has chronic occlusion of the proximal cervical right vertebral artery from just beyond the origin to about C5-6 where there is reconstitution of flow from collateral vessels. He has emphysema and mild opacities in the lung apices that is nonspecific. Given that possibility of dissection, the patient was transferred to [facility] to consult the Neurology team as well as the Vascular Surgery as he might require endarterectomy. PAST MEDICAL HISTORY: Significant for hypertension, hyperlipidemia. Also, he has schizophrenia and glaucoma as well as depression and anxiety. PAST SURGICAL HISTORY: Significant for left endarterectomy. He did have, according to him, cardiac catheterization done in [facility] in 2004. He stated he also has a blood clot removed after surgery in 2012 at [facility]. FAMILY HISTORY: Significant for hypertension. SOCIAL HISTORY: He is , has no children. He continued to smoke a pack a day. He does not drink alcohol or recreational drugs. He is currently unemployed. REVIEW OF SYSTEMS: The patient denied any blurring of vision. He does have glaucoma, but denied any cataracts or senile macular degeneration. Denied any earache, tinnitus or sensory deafness. Denied nosebleed, stuffy nose or postnasal drip. Denied any sore throat, sore tongue, toothache, hoarseness of voice or difficulty swallowing. Denied any nausea, vomiting, diarrhea or constipation. Denied any hematemesis, melena or hematochezia. Denied any dysuria, frequency or hematuria. Denied any chest pain, shortness of breath, orthopnea or paroxysmal nocturnal dyspnea. Denied any cough, phlegm or hemoptysis. PHYSICAL EXAMINATION: GENERAL: On arrival to the Emergency Room, he looked well and was clearly in no apparent respiratory distress. No pallor, jaundice, cyanosis or thyromegaly. No jugular venous distention. No lower limb edema. VITAL SIGNS: His heart rate was 68, blood pressure was 121/69, temperature was 97.9, respiratory rate was 17 and oxygen saturation was 99% on 2 liters of oxygen. HEAD, EYES, EARS, NOSE, AND THROAT: Showed normocephalic, atraumatic. NECK: Supple. HEART: Showed normal first and second heart sounds. No gallop, rub or murmur. CHEST: Clear to auscultation, no crepitation or rhonchi. ABDOMEN: Distended, soft, nontender. NEUROLOGIC: He was awake, alert, does have right-sided hemiparesis. Has also some dysarthria and slurring of speech. LABORATORY DATA: His lab work on arrival to the Emergency Room showed a white cell count 7700, hemoglobin 16, hematocrit 48, MCV 96 and platelet count of 108,000. His chemistry showed a serum sodium of 144, potassium 3, chloride 111, bicarbonate 21, anion gap of 12, BUN 9, creatinine 0.7. Estimated GFR was 139 mL per minute. His glucose was 86, calcium was 6, magnesium was 1.3. Total bilirubin, AST, ALT, alkaline phosphatase were normal. His ammonia was 21. His troponin was 7. Total protein was 4.7, albumin was 2.4. His prothrombin time, INR and APTT were normal and his coronavirus by PCR was negative and his chest x-ray showed poor inspiration, no acute infiltrate. ASSESSMENT AND PLAN: The patient was transferred to [facility] with a diagnosis of left middle cerebral artery territory infarct with right-sided paresis as well as aphasia. He was also found to be hypokalemic, hypomagnesemic and hypocalcemic. He did receive magnesium sulfate as well as potassium chloride and calcium supplement and was transferred to [facility] for further evaluation by the neurologist and the vascular surgeon as he might require endarterectomy. GLENIS DR: Rosalind TID: [id number]
--- NOTE | 2021-03-20 10:09 | PDOC ---
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 03/20/21 1009: CARDIO Progress Notes Date and Time Date of Service 03/20/2021 Time of Evaluation 0950 Subjective Subjective: No Chest Pain, No shortness of breath, No Palpitations Vitals Vitals Vital Signs Date Time Temp Pulse Resp B/P (MAP) Pulse Ox O2 Delivery O2 Flow Rate FiO2 03/20/21 08:57 75 139/60 03/20/21 07:00 98.6 18 91 Room Air 98.6 03/19/21 20:00 2.0 Weight Weight [ ] Input and Output Intake and Output Intake and Output 03/20/21 07:00 Intake Total 280 ml Output Total 100 ml Balance 180 ml Intake Oral 280 ml Output Urine Total 100 ml # Voids 1 # Bowel Movements 1 Laboratory Labs Laboratory Tests Test 03/19/21 12:10 Heparin Anti-Xa Act, Unfractionated 0.37 IU/mL (0.30-0.70) Physical Exam HEENT: Neck Supple W Full Motion Chest: Symmetric LUNGS: Clear to Auscultation Heart: S1S2, RRR (SR) Abdomen: Soft N/T Extremities: No Edema, No Calf Tenderness, Other (diminished pedal pulses) Neurology: alert, oriented, follow commands Assessment Assessment 1. 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 possibly from significant carotid artery disease 2. HTN: controlled. EF and WM nml, no definitive PFO/ASD 3. HLP 4. Hx of left carotid endarterectomy 5. Carotid artery disease: significant to left than right, will likely need surgery 6. Tobaccoism with possible COPD 7. Possible LE PAD: with intermittent claudication with ambulation, no wounds Recommendations 1. ASA, defer further antiplatelets to vascular/neurology 2. Statin 3. Cardiac risk index low to moderate risk for perioperative CV events for noncardiac surgery 4. MCOT is a consideration 5. Will address LE PAD as an outpt Justicifation of Admission Dx: Justifications for Admission: Justification of Admission Dx: Yes Stroke - Ischemic: Stroke-Ischemic ELBA AUGUSTIN MD 03/20/21 1550: CARDIO Progress Notes Assessment Assessment Patient seen and examined. Agree with ACCIDENT REPORT CLERK's assessment and plan. Patient with acute left MCA stroke Telemetry did not show any significant arrhythmias so far 2D echo showed normal LV systolic function and bubble study negative for intracardiac shunt Carotid duplex scan showed significant carotid artery stenosis Vascular surgery planning endarterectomy ML ARCE APRN Mar 20, 2021 10:09 ELBA AUGUSTIN MD Mar 20, 2021 15:50
--- NOTE | 2021-03-20 14:24 | NUR ---
SS following up with discharge planning. SS reviewed pt chart and discussed with pt RN. Pt is currently on room air. Cardiology, Neurology, and Vascular following. Tentative Carotid Endarterectomy on 03/23/2021. PO diet. PT recommended home with home healthcare. SS met with pt and discussed discharge planning and home healthcare. Pt agreeable to home healthcare with no preference of company. Referral sent to [facility], ; fax [phone]. SS will continue to follow for discharge planning.
--- NOTE | 2021-03-20 15:44 | PDOC ---
PROGRESS NOTES Date of Service DATE: 03/20/21 TIME: 15:37 Subjective Subjective Patient seen and examined in room. Patient is resting comfortably in bed. Patient denies any new TIA or strokelike symptoms. Patient continues to have mild slurred speech. Denies any upper or lower extremity weakness. Objective Objective Vital Signs Date Time Temp Pulse Resp B/P (MAP) Pulse Ox O2 Delivery O2 Flow Rate FiO2 03/20/21 13:49 67 111/53 (72) 03/20/21 11:00 98.2 18 97 Room Air 98.2 03/20/21 08:00 2.0 Intake and Output 03/20/21 07:00 Intake Total 280 ml Output Total 100 ml Balance 180 ml Intake Oral 280 ml Output Urine Total 100 ml # Voids 1 # Bowel Movements 1 Physical Exam Physical Exam Awake and alert Heart rate regular Nonlabored respirations Right neck is supple, no lymphadenopathy, left neck incision present and well- healed. Woven Paper Hat Mender are equal, speech is somewhat slurred. No facial asymmetry. Moving all extremities Assessment Assessment 1. Right sided weakness and slurred speech, left side MCA stroke 2. Moderate stenosis bilateral CCA, left CCA likely symptomatic lesion 3. HTN 4. Tobacco abuse 5. HLD 6. Moderate stenosis right ICA Plan Plan of Care 60-year-old male with left-sided MCA stroke. Symptomatic moderate left common carotid artery stenosis. Echocardiogram performed EF normal, no definitive PFO/ASD. Recommend left common carotid artery endarterectomy. This has been scheduled for Tuesday. I discussed plan of care with the patient and he is agreeable to proceed. Recommend continued dual antiplatelet with aspirin and Plavix. Recommend continued statin therapy. Comment Review of Relevant I have reviewed the following items rachael (where applicable) has been applied. Labs Laboratory Tests Test 03/18/21 20:10 03/19/21 02:50 03/19/21 12:10 Heparin Anti-Xa Act, Unfractionated 0.98 IU/mL (0.30-0.70) 1.03 IU/mL (0.30-0.70) 0.37 IU/mL (0.30-0.70) Hemoglobin A1c 6.2 % (4.8-5.6) Triglycerides Level 97 mg/dL (0-150) Cholesterol Level 121 mg/dL (0-200) LDL Cholesterol, Calculated 72 mg/dL (0-100) VLDL Cholesterol, Calculated 19 mg/dL (0-40) Non-HDL Cholesterol Calculated 91 mg/dL (0-129) HDL Cholesterol 30 mg/dL (40-60) Cholesterol/HDL Ratio 4.0 Medications Current Medications Info (FLU VACCINE SCREEN per RX) 1 each 1X MC ; Start 03/19/21 at 15:45; Stop 03/19/21 at 07:28; Status DC Heparin Sodium/ Dextrose 250 ml @ 15.7 mls/hr CONT PRN IV PER PROTOCOL Last administered on 03/19/21at 04:48; Start 03/18/21 at 16:00; Stop 03/19/21 at 10:46; Status DC Heparin Sodium (Porcine) (Heparin Sodium) 2,950 unit PRN Q6HRS PRN IV FOR UFH LEVEL LESS THAN 0.2; Start 03/18/21 at 16:00; Stop 03/19/21 at 10:46; Status DC Heparin Sodium (Porcine) (Heparin Sodium) 1,450 unit PRN Q6HRS PRN IV FOR UFH LEVEL 0.2 - 0.29; Start 03/18/21 at 16:00; Stop 03/19/21 at 10:46; Status DC Aspirin (Ecotrin) 81 mg DAILYWBKFT PO ; Start 03/19/21 at 08:00; Stop 03/19/21 at 12:43; Status DC Influenza Virus Vaccine Quadrival (Flulaval Quad 0033-4298 Syringe) 0.5 ml ONCE ONCE VAX IM ; Start 03/20/21 at 09:00; Stop 03/20/21 at 09:01; Status DC Clopidogrel Bisulfate (Plavix) 300 mg 1X ONCE PO ; Start 03/19/21 at 11:00; Stop 03/19/21 at 12:40; Status DC Clopidogrel Bisulfate (Plavix) 75 mg DAILYWBKFT PO ; Start 03/20/21 at 08:00; Stop 03/19/21 at 12:40; Status DC Atorvastatin Calcium (Lipitor) 40 mg QHS PO ; Start 03/19/21 at 21:00 Aspirin (Aspirin Rectal Supp) 300 mg DAILY [place] ; Start 03/19/21 at 12:45; Stop 03/19/21 at 12:59; Status DC Aspirin (Ecotrin) 81 mg DAILYWBKFT PO Last administered on 03/20/21at 08:57; Start 03/19/21 at 13:00 Bumetanide (Bumex) 1 mg BID92 PO Last administered on 03/20/21at 13:48; Start 03/20/21 at 09:00 Citalopram Hydrobromide (CeleXA) 20 mg DAILY PO Last administered on 03/20/21at 08:57; Start 03/20/21 at 09:00 Carvedilol (Coreg) 12.5 mg BIDWMEALS PO Last administered on 03/20/21at 08:57; Start 03/19/21 at 20:00 Risperidone (RisperDAL) 3 mg QHS PO ; Start 03/19/21 at 21:00 Spironolactone (Aldactone) 50 mg DAILY PO Last administered on 03/20/21at 08:58; Start 03/20/21 at 09:00 Fentanyl Citrate (Fentanyl 2ml Vial) 25 mcg PRN Q5MIN PRN IVP MILD PAIN 1-3; Start 03/23/21 at 06:00; Stop 03/24/21 at 05:59 Fentanyl Citrate (Fentanyl 2ml Vial) 50 mcg PRN Q5MIN PRN IVP MODERATE PAIN 4- 6; Start 03/23/21 at 06:00; Stop 03/24/21 at 05:59 Morphine Sulfate (Morphine Sulfate) 1 mg PRN Q10MIN PRN IVP SEVERE PAIN 7-10; Start 03/23/21 at 06:00; Stop 03/24/21 at 05:59 Ringer's Solution 1,000 ml @ 30 mls/hr Q24H IV ; Start 03/23/21 at 06:00; Stop 03/23/21 at 17:59 Hydromorphone HCl (Dilaudid) 0.5 mg PRN Q10MIN PRN IVP SEVERE PAIN 7-10, 2nd CHOICE; Start 03/23/21 at 06:00; Stop 03/24/21 at 05:59 Active Scripts Active Reported Captopril 25 Mg Tablet 25 Mg PO BID Bumetanide 1 Mg Tablet 1 Mg PO BID Risperdal (Risperidone) 3 Mg Tablet 3 Mg PO QHS Carvedilol 25 Mg Tablet 12.5 Mg PO BIDWMEALS Spironolactone 50 Mg Tablet 50 Mg PO DAILY Citalopram Hbr (Citalopram Hydrobromide) 20 Mg Tablet 20 Mg PO DAILY Atorvastatin Calcium 80 Mg Tablet 80 Mg PO QHS Vitals/I & O Vital Sign - Last 24 Hours 03/19/21 03/19/21 03/19/21 03/20/21 19:00 20:00 23:00 03:00 Temp 98.4 98.4 98.5 98.4 98.4 98.5 Pulse 80 69 67 Resp 18 18 19 B/P (MAP) 90/54 (66) 91/50 (64) 102/51 (68) Pulse Ox 96 95 91 O2 Delivery Room Air Nasal Cannula Room Air Room Air O2 Flow Rate 2.0 03/20/21 03/20/21 03/20/21 03/20/21 07:00 08:00 08:57 11:00 Temp 98.6 98.2 98.6 98.2 Pulse 75 75 93 Resp 18 18 B/P (MAP) 139/60 (86) 139/60 120/72 (88) Pulse Ox 91 97 O2 Delivery Room Air Nasal Cannula Room Air O2 Flow Rate 2.0 03/20/21 13:49 Pulse 67 B/P (MAP) 111/53 (72) Intake and Output 03/19/21 03/19/21 03/20/21 15:00 23:00 07:00 Intake Total 180 ml 100 ml 0 ml Output Total 100 ml Balance 80 ml 100 ml 0 ml Justifications for Admission Other Justification BRITTA ROUSE APRN Mar 20, 2021 15:44
[2021-03-20] MEDS: ATORVASTATIN CALCIUM 40 MG TABLET. PO SCH (20:22)
[2021-03-20] MEDS: risperiDONE 1 MG TABLET. PO SCH (20:22)
[2021-03-21 03:25] LABS: BASO % 1 % (0-3); EOS # 0.1 x10^3/uL (0.0-0.7); EOS % 2 % (0-3); HEMATOCRIT 49.4 % (39.0-53.0); HEMOGLOBIN 16.7 g/dL (13.0-17.5); LYMPH % 40 % (24-48); MEAN CORPUSCULAR HEMOGLOBIN 32 pg (25-35); MEAN CORPUSCULAR HGB CONC 34 g/dL (31-37); MEAN CORPUSCULAR VOLUME 94 fL (79-100); MONO # 0.7 x10^3/uL (0.0-1.1); MONO % 9 % (0-9); NEUT # 3.6 x10^3/uL (1.8-7.7); NEUT % 48 % (31-73); PLATELET COUNT 126 x10^3/uL (140-400); RED BLOOD COUNT 5.26 x10^6/uL (4.30-5.70); RED CELL DISTRIBUTION WIDTH 13.7 % (11.5-14.5); WHITE BLOOD COUNT 7.5 x10^3/uL (4.0-11.0)
[2021-03-21 03:30] VITALS: BP 115/58
[2021-03-21 03:56] LABS: ALBUMIN 3.7 g/dL (3.4-5.0); ALBUMIN/GLOBULIN RATIO 0.9 (1.0-1.7); CALCIUM 9.2 mg/dL (8.5-10.1); CREATININE 1.1 mg/dL (0.7-1.3); GFR 82.6; POTASSIUM 4.8 mmol/L (3.5-5.1); TOTAL BILIRUBIN 0.4 mg/dL (0.2-1.0); TOTAL PROTEIN 7.8 g/dL (6.4-8.2)
[2021-03-21 04:52] LABS: PLT ESTIMATE DECREASED (ADEQUATE)
[2021-03-21 07:52] VITALS: BP 134/62
[2021-03-21] MEDS: CITALOPRAM 20 MG TABLET. PO SCH (08:38)
[2021-03-21] MEDS: CARVEDILOL 12.5 MG TABLET. PO SCH ×2 (08:38→16:31)
[2021-03-21] MEDS: BUMETANIDE 1 MG TABLET. PO SCH ×2 (08:38→13:56)
[2021-03-21] MEDS: SPIRONOLACTONE 25 MG TABLET PO SCH (08:38)
[2021-03-21] MEDS: ASPIRIN ENTERIC COATED 81 MG TABLET.DR. PO SCH (08:38)
--- NOTE | 2021-03-21 10:35 | PDOC ---
Provider Note Date of Service: DATE: 03/21/21 TIME: 10:32 Provider Note Provider Note S: patient reports improvement in speech. Able to ambulate without difficulty. Denies new symptoms on asa/plavix O: GEN: well appearing, NAD NERUO: CN 3-12 intact. Tongue midline. Speech improving. MSK: normal gait, moves all 4 ext with symmetric strength RESP: nonlabored resp, symm expansion HENT: partial denture on lower gums, tongue midline A: Symptomatic left common carotid stenosis 2. Left parietal stroke Continue asa/plavix. Plan for extended redo left common carotid endarterectomy on Tuesday Preoperative evaluation completed. MRI confirmed left parietal stroke and TTE did not demonstrate cardiac source of embolism Discussed risks of operative intervention including risk of cranial nerve injury, bleeding, recurrent stenosis, infection, stroke patient agrees to proceed. Plan for Tuesday in afternoon Justicifation of Admission Dx: Justifications for Admission: Justification of Admission Dx: Yes Stroke - Ischemic: Stroke-Ischemic XANDER MARIA MD Mar 21, 2021 10:35
[2021-03-21 10:43] VITALS: BP 117/57
--- NOTE | 2021-03-21 10:52 | PN ---
DATE: 03/21/2021 SUBJECTIVE: The patient is sitting comfortably in his chair, in no apparent distress. He is definitely more awake, alert. His slurring of speech is much improved. Apparently, he is scheduled for left carotid endarterectomy on Tuesday. On questioning him this morning, he denied any complaint. The nursing staff did not voice any concerns, stated that he had an eventful night. PHYSICAL EXAMINATION: GENERAL: When I examined him, he looked well and was clearly in no apparent distress. No pallor, jaundice, cyanosis or thyromegaly. No jugular venous distention. No lower limb edema. VITAL SIGNS: His heart rate was 65, blood pressure is 134/62, temperature 97.7, respiratory rate was 18 and oxygen saturation was 100% on room air. HEAD, EYES, EARS, NOSE, AND THROAT: Normocephalic, atraumatic. NECK: Supple. HEART: Normal first and second heart sounds. No gallop, rub or murmur. CHEST: Clear to auscultation, no crepitation or rhonchi. ABDOMEN: Distended, soft, nontender. NEUROLOGIC: He is awake, alert, responding appropriately. All his cranial nerves intact. He moves extremities without difficulty. His intake and output were incompletely recorded. LABORATORY DATA: This morning showed a white cell count 7500, hemoglobin 16.7, hematocrit 49, MCV 94 and platelet count of 126,000. His chemistry showed a serum sodium 140, potassium 4.8, chloride 102, bicarbonate 29, anion gap of 9, BUN 15, creatinine 1.1. Estimated GFR was 82 mL per minute. His glucose was 96. His calcium was 9.2. Total bilirubin, AST, ALT, alkaline phosphatase were normal. Total protein 7.8, albumin was 3.7. ASSESSMENT: 1. Acute cerebrovascular accident involving left middle cerebral artery territory with right sided weakness and dysarthria has much improved. 2. Hypertension, well controlled. 3. Hyperlipidemia. 4. History of left carotid endarterectomy. 5. Carotid artery disease significant on the left more than right. 6. Tobaccoism with possible chronic obstructive pulmonary disease, possible left lower extremity, peripheral artery disease with intermittent claudication with ambulation. PLAN: To proceed with left common carotid artery endarterectomy that has been scheduled for Tuesday. JANELLE/JULIAN DR: Rosalind TID: [id number]
--- NOTE | 2021-03-21 12:27 | PDOC ---
PROGRESS NOTES Date of Service: DATE: 03/21/21 TIME: 12:27 Subjective Subjective No new complaints Objective Objective Vital Signs Date Time Temp Pulse Resp B/P (MAP) Pulse Ox O2 Delivery O2 Flow Rate FiO2 03/21/21 10:43 98.3 77 19 117/57 (77) 100 Room Air 98.3 03/20/21 20:00 2.0 Intake and Output 03/21/21 06:59 Intake Total 1240 ml Balance 1240 ml Intake Oral 1240 ml # Voids 1 Physical Exam Abdomen: Soft, No tenderness Heart: Regular rate (SR), Normal S1, Normal S2, No murmurs Extremities: No cyanosis, No edema General: Alert, Oriented X3, Cooperative, No acute distress HEENT: Atraumatic, Mucous membr. moist/pink Lungs: Clear to auscultation, Normal air movement MUSCULOSKELETAL: Osteoarthritic changes both hands Neuro: Normal speech, Sensation intact Psych/Mental Status: Mental status NL, Mood NL Skin: No breakdown, No significant lesion Assessment Assessment 1. 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 possibly from significant carotid artery disease 2. HTN: controlled. EF and WM nml, no definitive PFO/ASD 3. HLP 4. Hx of left carotid endarterectomy 5. Carotid artery disease: significant to left than right 6. Tobaccoism with possible COPD 7. Possible LE PAD: with intermittent claudication with ambulation, no wounds Recommendations 1. Vascular surgery team planning redo left common carotid endarterectomy on Tuesday 2. ASA, defer further antiplatelets to vascular/neurology 3. Cardiac risk index low to moderate risk for perioperative CV events for noncardiac surgery 4. Will address LE PAD as an outpt Comment Review of Relevant I have reviewed the following items rachael (where applicable) has been applied. Labs Laboratory Tests Test 03/21/21 02:40 White Blood Count 7.5 x10^3/uL (4.0-11.0) Red Blood Count 5.26 x10^6/uL (4.30-5.70) Hemoglobin 16.7 g/dL (13.0-17.5) Hematocrit 49.4 % (39.0-53.0) Mean Corpuscular Volume 94 fL (79-100) Mean Corpuscular Hemoglobin 32 pg (25-35) Mean Corpuscular Hemoglobin Concent 34 g/dL (31-37) Red Cell Distribution Width 13.7 % (11.5-14.5) Platelet Count 126 x10^3/uL (140-400) Neutrophils (%) (Auto) 48 % (31-73) Lymphocytes (%) (Auto) 40 % (24-48) Monocytes (%) (Auto) 9 % (0-9) Eosinophils (%) (Auto) 2 % (0-3) Basophils (%) (Auto) 1 % (0-3) Neutrophils # (Auto) 3.6 x10^3/uL (1.8-7.7) Lymphocytes # (Auto) 3.0 x10^3/uL (1.0-4.8) Monocytes # (Auto) 0.7 x10^3/uL (0.0-1.1) Eosinophils # (Auto) 0.1 x10^3/uL (0.0-0.7) Basophils # (Auto) 0.0 x10^3/uL (0.0-0.2) Platelet Estimate Decreased (ADEQUATE) Giant Platelets Few Sodium Level 140 mmol/L (136-145) Potassium Level 4.8 mmol/L (3.5-5.1) Chloride Level 102 mmol/L (98-107) Carbon Dioxide Level 29 mmol/L (21-32) Anion Gap 9 (6-14) Blood Urea Nitrogen 15 mg/dL (8-26) Creatinine 1.1 mg/dL (0.7-1.3) Estimated GFR (Cockcroft-Gault) 82.6 BUN/Creatinine Ratio 14 (6-20) Glucose Level 96 mg/dL (70-99) Calcium Level 9.2 mg/dL (8.5-10.1) Total Bilirubin 0.4 mg/dL (0.2-1.0) Aspartate Amino Transf (AST/SGOT) 28 U/L (15-37) Alanine Aminotransferase (ALT/SGPT) 42 U/L (16-63) Alkaline Phosphatase 72 U/L (46-116) Total Protein 7.8 g/dL (6.4-8.2) Albumin 3.7 g/dL (3.4-5.0) Albumin/Globulin Ratio 0.9 (1.0-1.7) Medications Current Medications Fentanyl Citrate (Fentanyl 2ml Vial) 25 mcg PRN Q5MIN PRN IVP MILD PAIN 1-3; Start 03/23/21 at 06:00; Stop 03/24/21 at 05:59 Fentanyl Citrate (Fentanyl 2ml Vial) 50 mcg PRN Q5MIN PRN IVP MODERATE PAIN 4- 6; Start 03/23/21 at 06:00; Stop 03/24/21 at 05:59 Hydromorphone HCl (Dilaudid) 0.5 mg PRN Q10MIN PRN IVP SEVERE PAIN 7-10, 2nd CHOICE; Start 03/23/21 at 06:00; Stop 03/24/21 at 05:59 Morphine Sulfate (Morphine Sulfate) 1 mg PRN Q10MIN PRN IVP SEVERE PAIN 7-10; Start 03/23/21 at 06:00; Stop 03/24/21 at 05:59 Ringer's Solution 1,000 ml @ 30 mls/hr Q24H IV ; Start 03/23/21 at 06:00; Stop 03/23/21 at 17:59 Vitals/I & O Vital Sign - Last 24 Hours 03/20/21 03/20/21 03/20/21 03/20/21 13:49 15:10 17:44 19:25 Temp 98.4 97.6 98.4 97.6 Pulse 67 65 71 63 Resp 18 17 B/P (MAP) 111/53 (72) 110/70 (83) 118/58 110/57 (74) Pulse Ox 96 92 O2 Delivery Room Air Room Air 03/20/21 03/20/21 03/21/21 03/21/21 20:00 23:16 03:30 07:40 Temp 98.6 97.6 98.6 97.6 Pulse 72 63 Resp 18 18 B/P (MAP) 94/55 (68) 115/58 (77) Pulse Ox 92 93 O2 Delivery Nasal Cannula Room Air Room Air Room Air O2 Flow Rate 2.0 03/21/21 03/21/21 03/21/21 07:52 08:38 10:43 Temp 97.7 98.3 97.7 98.3 Pulse 65 65 77 Resp 18 19 B/P (MAP) 134/62 (86) 134/62 117/57 (77) Pulse Ox 100 100 O2 Delivery Room Air Room Air Intake and Output 03/20/21 03/20/21 03/21/21 14:59 22:59 06:59 Intake Total 720 ml 400 ml 120 ml Balance 720 ml 400 ml 120 ml ELBA AUGUSTIN MD Mar 21, 2021 12:27
--- NOTE | 2021-03-21 13:32 | PDOC ---
PROGRESS NOTES Date of Service DATE: 03/21/21 TIME: 13:31 Assessment Left MCA distribution involving the left parietal operculum area, symptoms from which he has made a rapid recovery Possible right mid right common carotid artery intimal flap/focal dissection, but no clinical evidence of dissection and stroke is on other side 75 percent focal stenosis in the mid right common carotid artery and 70 percent focal stenosis in the mid left common carotid artery, and milder narrowing elsewhere in the common carotid arteries. 50 percent narrowing of the right internal carotid artery origin. No significant narrowing of the left internal carotid artery origin. 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 Hypocalcemia, hypokalemia, hypomagnesemia History of schizophrenia Favorable lipid profile already on a statin Passed his swallow study, needs dysphagia diet Plan Aspirin and statin Rehabilitation modalities Agree with vascular surgery plans for endarterectomy on 03/22 Subjective No complaints Objective Vital Signs Date Time Temp Pulse Resp B/P (MAP) Pulse Ox O2 Delivery O2 Flow Rate FiO2 03/21/21 10:43 98.3 77 19 117/57 (77) 100 Room Air 98.3 03/20/21 20:00 2.0 Intake and Output 03/21/21 07:00 Intake Total 1240 ml Balance 1240 ml Intake Oral 1240 ml # Voids 1 PHYSICAL EXAM Alert. Oriented to time, place and person. Dysarthria improving PERRL. EOMI. CN: no focal findings. Muscle tone: normal. Muscle strength: 5/5, but there is a right pronator drift DTR: 2+ Plantar reflex: Flexor Gait: not examined in bed. Sensory exam: no abnormal findings. No cerebellar signs elicited. Review of Relevant I have reviewed the following items rachael (where applicable) has been applied. Labs Laboratory Tests Test 03/21/21 02:40 White Blood Count 7.5 x10^3/uL (4.0-11.0) Red Blood Count 5.26 x10^6/uL (4.30-5.70) Hemoglobin 16.7 g/dL (13.0-17.5) Hematocrit 49.4 % (39.0-53.0) Mean Corpuscular Volume 94 fL (79-100) Mean Corpuscular Hemoglobin 32 pg (25-35) Mean Corpuscular Hemoglobin Concent 34 g/dL (31-37) Red Cell Distribution Width 13.7 % (11.5-14.5) Platelet Count 126 x10^3/uL (140-400) Neutrophils (%) (Auto) 48 % (31-73) Lymphocytes (%) (Auto) 40 % (24-48) Monocytes (%) (Auto) 9 % (0-9) Eosinophils (%) (Auto) 2 % (0-3) Basophils (%) (Auto) 1 % (0-3) Neutrophils # (Auto) 3.6 x10^3/uL (1.8-7.7) Lymphocytes # (Auto) 3.0 x10^3/uL (1.0-4.8) Monocytes # (Auto) 0.7 x10^3/uL (0.0-1.1) Eosinophils # (Auto) 0.1 x10^3/uL (0.0-0.7) Basophils # (Auto) 0.0 x10^3/uL (0.0-0.2) Platelet Estimate Decreased (ADEQUATE) Giant Platelets Few Sodium Level 140 mmol/L (136-145) Potassium Level 4.8 mmol/L (3.5-5.1) Chloride Level 102 mmol/L (98-107) Carbon Dioxide Level 29 mmol/L (21-32) Anion Gap 9 (6-14) Blood Urea Nitrogen 15 mg/dL (8-26) Creatinine 1.1 mg/dL (0.7-1.3) Estimated GFR (Cockcroft-Gault) 82.6 BUN/Creatinine Ratio 14 (6-20) Glucose Level 96 mg/dL (70-99) Calcium Level 9.2 mg/dL (8.5-10.1) Total Bilirubin 0.4 mg/dL (0.2-1.0) Aspartate Amino Transf (AST/SGOT) 28 U/L (15-37) Alanine Aminotransferase (ALT/SGPT) 42 U/L (16-63) Alkaline Phosphatase 72 U/L (46-116) Total Protein 7.8 g/dL (6.4-8.2) Albumin 3.7 g/dL (3.4-5.0) Albumin/Globulin Ratio 0.9 (1.0-1.7) Laboratory Tests Test 03/21/21 02:40 White Blood Count 7.5 x10^3/uL (4.0-11.0) Red Blood Count 5.26 x10^6/uL (4.30-5.70) Hemoglobin 16.7 g/dL (13.0-17.5) Hematocrit 49.4 % (39.0-53.0) Mean Corpuscular Volume 94 fL (79-100) Mean Corpuscular Hemoglobin 32 pg (25-35) Mean Corpuscular Hemoglobin Concent 34 g/dL (31-37) Red Cell Distribution Width 13.7 % (11.5-14.5) Platelet Count 126 x10^3/uL (140-400) Neutrophils (%) (Auto) 48 % (31-73) Lymphocytes (%) (Auto) 40 % (24-48) Monocytes (%) (Auto) 9 % (0-9) Eosinophils (%) (Auto) 2 % (0-3) Basophils (%) (Auto) 1 % (0-3) Neutrophils # (Auto) 3.6 x10^3/uL (1.8-7.7) Lymphocytes # (Auto) 3.0 x10^3/uL (1.0-4.8) Monocytes # (Auto) 0.7 x10^3/uL (0.0-1.1) Eosinophils # (Auto) 0.1 x10^3/uL (0.0-0.7) Basophils # (Auto) 0.0 x10^3/uL (0.0-0.2) Platelet Estimate Decreased (ADEQUATE) Giant Platelets Few Sodium Level 140 mmol/L (136-145) Potassium Level 4.8 mmol/L (3.5-5.1) Chloride Level 102 mmol/L (98-107) Carbon Dioxide Level 29 mmol/L (21-32) Anion Gap 9 (6-14) Blood Urea Nitrogen 15 mg/dL (8-26) Creatinine 1.1 mg/dL (0.7-1.3) Estimated GFR (Cockcroft-Gault) 82.6 BUN/Creatinine Ratio 14 (6-20) Glucose Level 96 mg/dL (70-99) Calcium Level 9.2 mg/dL (8.5-10.1) Total Bilirubin 0.4 mg/dL (0.2-1.0) Aspartate Amino Transf (AST/SGOT) 28 U/L (15-37) Alanine Aminotransferase (ALT/SGPT) 42 U/L (16-63) Alkaline Phosphatase 72 U/L (46-116) Total Protein 7.8 g/dL (6.4-8.2) Albumin 3.7 g/dL (3.4-5.0) Albumin/Globulin Ratio 0.9 (1.0-1.7) Medications Current Medications Info (FLU VACCINE SCREEN per RX) 1 each 1X MC ; Start 03/19/21 at 15:45; Stop 03/19/21 at 07:28; Status DC Heparin Sodium/ Dextrose 250 ml @ 15.7 mls/hr CONT PRN IV PER PROTOCOL Last administered on 03/19/21at 04:48; Start 03/18/21 at 16:00; Stop 03/19/21 at 10:46; Status DC Heparin Sodium (Porcine) (Heparin Sodium) 2,950 unit PRN Q6HRS PRN IV FOR UFH LEVEL LESS THAN 0.2; Start 03/18/21 at 16:00; Stop 03/19/21 at 10:46; Status DC Heparin Sodium (Porcine) (Heparin Sodium) 1,450 unit PRN Q6HRS PRN IV FOR UFH LEVEL 0.2 - 0.29; Start 03/18/21 at 16:00; Stop 03/19/21 at 10:46; Status DC Aspirin (Ecotrin) 81 mg DAILYWBKFT PO ; Start 03/19/21 at 08:00; Stop 03/19/21 at 12:43; Status DC Influenza Virus Vaccine Quadrival (Flulaval Quad 8664-0398 Syringe) 0.5 ml ONCE ONCE VAX IM ; Start 03/20/21 at 09:00; Stop 03/20/21 at 09:01; Status DC Clopidogrel Bisulfate (Plavix) 300 mg 1X ONCE PO ; Start 03/19/21 at 11:00; Stop 03/19/21 at 12:40; Status DC Clopidogrel Bisulfate (Plavix) 75 mg DAILYWBKFT PO ; Start 03/20/21 at 08:00; Stop 03/19/21 at 12:40; Status DC Atorvastatin Calcium (Lipitor) 40 mg QHS PO Last administered on 03/20/21at 20:22; Start 03/19/21 at 21:00 Aspirin (Aspirin Rectal Supp) 300 mg DAILY [place] ; Start 03/19/21 at 12:45; Stop 03/19/21 at 12:59; Status DC Aspirin (Ecotrin) 81 mg DAILYWBKFT PO Last administered on 03/21/21at 08:38; Start 03/19/21 at 13:00 Bumetanide (Bumex) 1 mg BID92 PO Last administered on 03/21/21at 08:38; Start 03/20/21 at 09:00 Citalopram Hydrobromide (CeleXA) 20 mg DAILY PO Last administered on 03/21/21at 08:38; Start 03/20/21 at 09:00 Carvedilol (Coreg) 12.5 mg BIDWMEALS PO Last administered on 03/21/21at 08:38; Start 03/19/21 at 20:00 Risperidone (RisperDAL) 3 mg QHS PO Last administered on 03/20/21at 20:22; Start 03/19/21 at 21:00 Spironolactone (Aldactone) 50 mg DAILY PO Last administered on 03/21/21at 08:38; Start 03/20/21 at 09:00 Fentanyl Citrate (Fentanyl 2ml Vial) 25 mcg PRN Q5MIN PRN IVP MILD PAIN 1-3; Start 03/23/21 at 06:00; Stop 03/24/21 at 05:59 Fentanyl Citrate (Fentanyl 2ml Vial) 50 mcg PRN Q5MIN PRN IVP MODERATE PAIN 4- 6; Start 03/23/21 at 06:00; Stop 03/24/21 at 05:59 Morphine Sulfate (Morphine Sulfate) 1 mg PRN Q10MIN PRN IVP SEVERE PAIN 7-10; Start 03/23/21 at 06:00; Stop 03/24/21 at 05:59 Ringer's Solution 1,000 ml @ 30 mls/hr Q24H IV ; Start 03/23/21 at 06:00; Stop 03/23/21 at 17:59 Hydromorphone HCl (Dilaudid) 0.5 mg PRN Q10MIN PRN IVP SEVERE PAIN 7-10, 2nd CHOICE; Start 03/23/21 at 06:00; Stop 03/24/21 at 05:59 Active Scripts Active Reported Captopril 25 Mg Tablet 25 Mg PO BID Bumetanide 1 Mg Tablet 1 Mg PO BID Risperdal (Risperidone) 3 Mg Tablet 3 Mg PO QHS Carvedilol 25 Mg Tablet 12.5 Mg PO BIDWMEALS Spironolactone 50 Mg Tablet 50 Mg PO DAILY Citalopram Hbr (Citalopram Hydrobromide) 20 Mg Tablet 20 Mg PO DAILY Atorvastatin Calcium 80 Mg Tablet 80 Mg PO QHS Vitals/I & O Vital Sign - Last 24 Hours 03/20/21 03/20/21 03/20/21 03/20/21 13:49 15:10 17:44 19:25 Temp 98.4 97.6 98.4 97.6 Pulse 67 65 71 63 Resp 18 17 B/P (MAP) 111/53 (72) 110/70 (83) 118/58 110/57 (74) Pulse Ox 96 92 O2 Delivery Room Air Room Air 03/20/21 03/20/21 03/21/21 03/21/21 20:00 23:16 03:30 07:40 Temp 98.6 97.6 98.6 97.6 Pulse 72 63 Resp 18 18 B/P (MAP) 94/55 (68) 115/58 (77) Pulse Ox 92 93 O2 Delivery Nasal Cannula Room Air Room Air Room Air O2 Flow Rate 2.0 03/21/21 03/21/21 03/21/21 07:52 08:38 10:43 Temp 97.7 98.3 97.7 98.3 Pulse 65 65 77 Resp 18 19 B/P (MAP) 134/62 (86) 134/62 117/57 (77) Pulse Ox 100 100 O2 Delivery Room Air Room Air Intake and Output 03/20/21 03/20/21 03/21/21 15:00 23:00 07:00 Intake Total 720 ml 400 ml 120 ml Balance 720 ml 400 ml 120 ml Justicifation of Admission Dx: Justifications for Admission: Justification of Admission Dx: Yes Stroke - Ischemic: Stroke-Ischemic NADIA FISCHER MD Mar 21, 2021 13:32
[2021-03-21 15:09] VITALS: BP 119/65
[2021-03-21 19:20] VITALS: BP 96/54
[2021-03-21] MEDS: ATORVASTATIN CALCIUM 40 MG TABLET. PO SCH (20:50)
[2021-03-21] MEDS: risperiDONE 1 MG TABLET. PO SCH (20:50)
[2021-03-21 23:40] VITALS: BP 88/52
[2021-03-22 03:40] VITALS: BP 110/52
[2021-03-22 07:48] VITALS: BP 106/55
[2021-03-22] MEDS: CARVEDILOL 12.5 MG TABLET. PO SCH ×2 (08:36→16:16)
[2021-03-22] MEDS: BUMETANIDE 1 MG TABLET. PO SCH ×2 (08:37→16:16)
[2021-03-22] MEDS: CITALOPRAM 20 MG TABLET. PO SCH (08:37)
[2021-03-22] MEDS: ASPIRIN ENTERIC COATED 81 MG TABLET.DR. PO SCH (08:37)
[2021-03-22] MEDS: SPIRONOLACTONE 25 MG TABLET PO SCH (08:37)
--- NOTE | 2021-03-22 09:34 | PDOC ---
PROGRESS NOTES Date of Service: DATE: 03/22/21 TIME: 09:34 Subjective Subjective No new complaints overnight Objective Objective Vital Signs Date Time Temp Pulse Resp B/P (MAP) Pulse Ox O2 Delivery O2 Flow Rate FiO2 03/22/21 08:36 76 03/22/21 07:48 97.8 17 106/55 (72) 99 Room Air 97.8 03/21/21 20:00 2.0 Intake and Output 03/22/21 07:00 Intake Total 620 ml Output Total 0 ml Balance 620 ml Intake Oral 620 ml Output Urine Total 0 ml Physical Exam Abdomen: Soft, No tenderness Heart: Regular rate (SR), Normal S1, Normal S2, No murmurs Extremities: No cyanosis, No edema General: Alert, Oriented X3, Cooperative, No acute distress HEENT: Atraumatic, Mucous membr. moist/pink Lungs: Clear to auscultation, Normal air movement MUSCULOSKELETAL: Osteoarthritic changes both hands Neuro: Normal speech, Sensation intact Psych/Mental Status: Mental status NL, Mood NL Skin: No breakdown, No significant lesion Assessment Assessment 1. 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 possibly from significant carotid artery disease 2. HTN: controlled. EF and WM nml, no definitive PFO/ASD 3. HLP 4. Hx of left carotid endarterectomy 5. Carotid artery disease: significant to left than right 6. Tobaccoism with possible COPD 7. Possible LE PAD: with intermittent claudication with ambulation, no wounds Recommendations 1. Vascular surgery team planning redo left common carotid endarterectomy on Tuesday 2. ASA, defer further antiplatelets to vascular/neurology 3. Cardiac risk index low to moderate risk for perioperative CV events for noncardiac surgery 4. Will address LE PAD as an outpt Comment Review of Relevant I have reviewed the following items rachael (where applicable) has been applied. Medications Current Medications Cefazolin Sodium 1 gm/Sodium Chloride 500 ml @ 500 mls/hr 1X ONCE IRR ; Start 03/23/21 at 06:00; Stop 03/23/21 at 06:59 Fentanyl Citrate (Fentanyl 2ml Vial) 25 mcg PRN Q5MIN PRN IVP MILD PAIN 1-3; Start 03/23/21 at 06:00; Stop 03/24/21 at 05:59 Fentanyl Citrate (Fentanyl 2ml Vial) 50 mcg PRN Q5MIN PRN IVP MODERATE PAIN 4- 6; Start 03/23/21 at 06:00; Stop 03/24/21 at 05:59 Heparin Sodium (Porcine) 5000 unit/Ringer's Solution 505 ml @ 505 mls/hr 1X ONCE IRR ; Start 03/23/21 at 06:00; Stop 03/23/21 at 06:59 Hydromorphone HCl (Dilaudid) 0.5 mg PRN Q10MIN PRN IVP SEVERE PAIN 7-10, 2nd CHOICE; Start 03/23/21 at 06:00; Stop 03/24/21 at 05:59 Morphine Sulfate (Morphine Sulfate) 1 mg PRN Q10MIN PRN IVP SEVERE PAIN 7-10; Start 03/23/21 at 06:00; Stop 03/24/21 at 05:59 Ringer's Solution 1,000 ml @ 30 mls/hr Q24H IV ; Start 03/23/21 at 06:00; Stop 03/23/21 at 17:59 Vitals/I & O Vital Sign - Last 24 Hours 03/21/21 03/21/21 03/21/21 03/21/21 10:43 15:09 16:31 19:20 Temp 98.3 97.7 98.3 98.3 97.7 98.3 Pulse 77 76 76 77 Resp 19 19 17 B/P (MAP) 117/57 (77) 119/65 (83) 119/65 96/54 (68) Pulse Ox 100 100 91 O2 Delivery Room Air Room Air Room Air 03/21/21 03/21/21 03/22/21 03/22/21 20:00 23:40 03:40 07:48 Temp 98.1 98.1 97.8 98.1 98.1 97.8 Pulse 76 84 67 Resp 16 17 17 B/P (MAP) 88/52 (64) 110/52 (71) 106/55 (72) Pulse Ox 92 98 99 O2 Delivery Room Air Room Air Room Air Room Air O2 Flow Rate 2.0 03/22/21 08:36 Pulse 76 Intake and Output 03/21/21 03/21/21 03/22/21 15:00 23:00 07:00 Intake Total 300 ml 200 ml 120 ml Output Total 0 ml Balance 300 ml 200 ml 120 ml ELBA AUGUSTIN MD Mar 22, 2021 09:34
[2021-03-22 10:52] VITALS: BP 115/56
[2021-03-22 14:13] VITALS: BP 101/69
[2021-03-22 19:40] VITALS: BP 97/56
[2021-03-22] MEDS: ATORVASTATIN CALCIUM 40 MG TABLET. PO SCH (21:59)
[2021-03-22] MEDS: risperiDONE 1 MG TABLET. PO SCH (21:59)
[2021-03-22 23:05] VITALS: BP 121/51
[2021-03-23 03:25] VITALS: BP 99/61
[2021-03-23] MEDS ORDERED: HYDROmorphone 2 MG/ML VIAL IVP PRN (06:00)
[2021-03-23] MEDS ORDERED: MORPHINE SULFATE 2 MG/ML INJ. IVP PRN (06:00)
[2021-03-23] MEDS ORDERED: HEPARIN SODIUM 5,000 UNIT in IV RINGERS,LACTATED 500ML 500 ML IRR ONE (06:00)
[2021-03-23] MEDS ORDERED: IV RINGERS,LACTATED 1000ML 1,000 ML IV SCH (06:00)
[2021-03-23] MEDS ORDERED: fentaNYL PF VIAL 100 MCG/2 ML VIAL IVP PRN ×2 (06:00)
[2021-03-23 07:00] VITALS: BP 139/92
[2021-03-23] MEDS: CARVEDILOL 12.5 MG TABLET. PO SCH ×2 (08:00→18:03)
[2021-03-23] MEDS: BUMETANIDE 1 MG TABLET. PO SCH ×2 (09:00→18:04)
--- NOTE | 2021-03-23 09:00 | PDOC ---
PROGRESS NOTES Date of Service DATE: 03/23/21 TIME: 08:59 Assessment Left MCA distribution involving the left parietal operculum area, symptoms from which he has made a rapid recovery Possible right mid right common carotid artery intimal flap/focal dissection, but no clinical evidence of dissection and stroke is on other side 75 percent focal stenosis in the mid right common carotid artery and 70 percent focal stenosis in the mid left common carotid artery, and milder narrowing elsewhere in the common carotid arteries. 50 percent narrowing of the right internal carotid artery origin. No significant narrowing of the left internal carotid artery origin. 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 Hypocalcemia, hypokalemia, hypomagnesemia History of schizophrenia Favorable lipid profile already on a statin Plan Aspirin and statin Rehabilitation modalities Redo left carotid endarterectomy today Subjective No complaints Objective Vital Signs Date Time Temp Pulse Resp B/P (MAP) Pulse Ox O2 Delivery O2 Flow Rate FiO2 03/23/21 07:00 97.3 82 18 139/92 (108) 96 Room Air 97.3 Intake and Output 03/23/21 07:00 Intake Total 880 ml Balance 880 ml Intake Oral 880 ml # Voids 2 PHYSICAL EXAM Alert. Oriented to time, place and person. Dysarthria improving PERRL. EOMI. CN: no focal findings. Muscle tone: normal. Muscle strength: 5/5, no right pronator drift DTR: 2+ Plantar reflex: Flexor Gait: not examined in bed. Sensory exam: no abnormal findings. No cerebellar signs elicited. Review of Relevant I have reviewed the following items rachael (where applicable) has been applied. Medications Current Medications Info (FLU VACCINE SCREEN per RX) 1 each 1X MC ; Start 03/19/21 at 15:45; Stop 03/19/21 at 07:28; Status DC Heparin Sodium/ Dextrose 250 ml @ 15.7 mls/hr CONT PRN IV PER PROTOCOL Last administered on 03/19/21at 04:48; Start 03/18/21 at 16:00; Stop 03/19/21 at 10:46; Status DC Heparin Sodium (Porcine) (Heparin Sodium) 2,950 unit PRN Q6HRS PRN IV FOR UFH LEVEL LESS THAN 0.2; Start 03/18/21 at 16:00; Stop 03/19/21 at 10:46; Status DC Heparin Sodium (Porcine) (Heparin Sodium) 1,450 unit PRN Q6HRS PRN IV FOR UFH LEVEL 0.2 - 0.29; Start 03/18/21 at 16:00; Stop 03/19/21 at 10:46; Status DC Aspirin (Ecotrin) 81 mg DAILYWBKFT PO ; Start 03/19/21 at 08:00; Stop 03/19/21 at 12:43; Status DC Influenza Virus Vaccine Quadrival (Flulaval Quad [id number] Syringe) 0.5 ml ONCE ONCE VAX IM ; Start 03/20/21 at 09:00; Stop 03/20/21 at 09:01; Status DC Clopidogrel Bisulfate (Plavix) 300 mg 1X ONCE PO ; Start 03/19/21 at 11:00; Stop 03/19/21 at 12:40; Status DC Clopidogrel Bisulfate (Plavix) 75 mg DAILYWBKFT PO ; Start 03/20/21 at 08:00; Stop 03/19/21 at 12:40; Status DC Atorvastatin Calcium (Lipitor) 40 mg QHS PO Last administered on 03/22/21at 21:59; Start 03/19/21 at 21:00 Aspirin (Aspirin Rectal Supp) 300 mg DAILY PA ; Start 03/19/21 at 12:45; Stop 03/19/21 at 12:59; Status DC Aspirin (Ecotrin) 81 mg DAILYWBKFT PO Last administered on 03/22/21at 08:37; Start 03/19/21 at 13:00 Bumetanide (Bumex) 1 mg BID92 PO Last administered on 03/22/21at 16:16; Start 03/20/21 at 09:00 Citalopram Hydrobromide (CeleXA) 20 mg DAILY PO Last administered on 03/22/21at 08:37; Start 03/20/21 at 09:00 Carvedilol (Coreg) 12.5 mg BIDWMEALS PO Last administered on 03/22/21at 16:16; Start 03/19/21 at 20:00 Risperidone (RisperDAL) 3 mg QHS PO Last administered on 03/22/21at 21:59; Start 03/19/21 at 21:00 Spironolactone (Aldactone) 50 mg DAILY PO Last administered on 03/22/21at 08:37; Start 03/20/21 at 09:00 Fentanyl Citrate (Fentanyl 2ml Vial) 25 mcg PRN Q5MIN PRN IVP MILD PAIN 1-3; Start 03/23/21 at 06:00; Stop 03/24/21 at 05:59 Fentanyl Citrate (Fentanyl 2ml Vial) 50 mcg PRN Q5MIN PRN IVP MODERATE PAIN 4- 6; Start 03/23/21 at 06:00; Stop 03/24/21 at 05:59 Morphine Sulfate (Morphine Sulfate) 1 mg PRN Q10MIN PRN IVP SEVERE PAIN 7-10; Start 03/23/21 at 06:00; Stop 03/24/21 at 05:59 Ringer's Solution 1,000 ml @ 30 mls/hr Q24H IV ; Start 03/23/21 at 06:00; Stop 03/23/21 at 17:59 Hydromorphone HCl (Dilaudid) 0.5 mg PRN Q10MIN PRN IVP SEVERE PAIN 7-10, 2nd CHOICE; Start 03/23/21 at 06:00; Stop 03/24/21 at 05:59 Heparin Sodium (Porcine) 5000 unit/Ringer's Solution 505 ml @ 505 mls/hr 1X ONCE IRR ; Start 03/23/21 at 06:00; Stop 03/23/21 at 06:59; Status DC Cefazolin Sodium 1 gm/Sodium Chloride 500 ml @ 500 mls/hr 1X ONCE IRR ; Start 03/23/21 at 06:00; Stop 03/23/21 at 06:59; Status DC Active Scripts Active Reported Captopril 25 Mg Tablet 25 Mg PO BID Bumetanide 1 Mg Tablet 1 Mg PO BID Risperdal (Risperidone) 3 Mg Tablet 3 Mg PO QHS Carvedilol 25 Mg Tablet 12.5 Mg PO BIDWMEALS Spironolactone 50 Mg Tablet 50 Mg PO DAILY Citalopram Hbr (Citalopram Hydrobromide) 20 Mg Tablet 20 Mg PO DAILY Atorvastatin Calcium 80 Mg Tablet 80 Mg PO QHS Vitals/I & O Vital Sign - Last 24 Hours 03/22/21 03/22/21 03/22/21 03/22/21 10:52 14:13 16:16 19:40 Temp 97.3 98.1 98.6 97.3 98.1 98.6 Pulse 65 82 85 72 Resp 17 15 20 B/P (MAP) 115/56 (75) 101/69 (80) 97/56 (70) Pulse Ox 100 95 94 O2 Delivery Room Air Room Air Room Air 03/22/21 03/22/21 03/23/21 03/23/21 19:50 23:05 03:25 07:00 Temp 97.9 97.7 97.3 97.9 97.7 97.3 Pulse 71 70 82 Resp 20 18 18 B/P (MAP) 121/51 (74) 99/61 (74) 139/92 (108) Pulse Ox 93 92 96 O2 Delivery Room Air Room Air Room Air Room Air Intake and Output 03/22/21 03/22/21 03/23/21 15:00 23:00 07:00 Intake Total 640 ml 240 ml 0 ml Balance 640 ml 240 ml 0 ml Justicifation of Admission Dx: Justifications for Admission: Justification of Admission Dx: Yes Stroke - Ischemic: Stroke-Ischemic NADIA FISCHER MD Mar 23, 2021 09:00
--- NOTE | 2021-03-23 10:37 | PDOC ---
PROGRESS NOTES Date of Service: DATE: 03/23/21 TIME: 10:37 Subjective Subjective Denied any chest pain or shortness of breath Objective Objective Vital Signs Date Time Temp Pulse Resp B/P (MAP) Pulse Ox O2 Delivery O2 Flow Rate FiO2 03/23/21 08:00 Room Air 03/23/21 07:00 97.3 82 18 139/92 (108) 96 97.3 Intake and Output 03/23/21 07:00 Intake Total 880 ml Balance 880 ml Intake Oral 880 ml # Voids 2 Physical Exam Abdomen: Soft, No tenderness Heart: Regular rate (SR), Normal S1, Normal S2, No murmurs Extremities: No cyanosis, No edema General: Alert, Oriented X3, Cooperative, No acute distress HEENT: Atraumatic, Mucous membr. moist/pink Lungs: Clear to auscultation, Normal air movement MUSCULOSKELETAL: Osteoarthritic changes both hands Neuro: Normal speech, Sensation intact Psych/Mental Status: Mental status NL, Mood NL Skin: No breakdown, No significant lesion Assessment Assessment 1. 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 possibly from significant carotid artery disease 2. HTN: controlled. EF and WM nml, no definitive PFO/ASD 3. HLP 4. Hx of left carotid endarterectomy 5. Carotid artery disease: significant to left than right 6. Tobaccoism with possible COPD 7. Possible LE PAD: with intermittent claudication with ambulation, no wounds Recommendations 1. Vascular surgery team planning redo left common carotid endarterectomy today 2. ASA, defer further antiplatelets to vascular/neurology 3. Cardiac risk index low to moderate risk for perioperative CV events for noncardiac surgery 4. Will address LE PAD as an outpt Comment Review of Relevant I have reviewed the following items rachael (where applicable) has been applied. Medications Current Medications Cefazolin Sodium 1 gm/Sodium Chloride 500 ml @ 500 mls/hr 1X ONCE IRR ; Start 03/23/21 at 06:00; Stop 03/23/21 at 06:59; Status DC Fentanyl Citrate (Fentanyl 2ml Vial) 25 mcg PRN Q5MIN PRN IVP MILD PAIN 1-3; Start 03/23/21 at 06:00; Stop 03/24/21 at 05:59 Fentanyl Citrate (Fentanyl 2ml Vial) 50 mcg PRN Q5MIN PRN IVP MODERATE PAIN 4- 6; Start 03/23/21 at 06:00; Stop 03/24/21 at 05:59 Heparin Sodium (Porcine) 5000 unit/Ringer's Solution 505 ml @ 505 mls/hr 1X ONCE IRR ; Start 03/23/21 at 06:00; Stop 03/23/21 at 06:59; Status DC Hydromorphone HCl (Dilaudid) 0.5 mg PRN Q10MIN PRN IVP SEVERE PAIN 7-10, 2nd CHOICE; Start 03/23/21 at 06:00; Stop 03/24/21 at 05:59 Morphine Sulfate (Morphine Sulfate) 1 mg PRN Q10MIN PRN IVP SEVERE PAIN 7-10; Start 03/23/21 at 06:00; Stop 03/24/21 at 05:59 Ringer's Solution 1,000 ml @ 30 mls/hr Q24H IV ; Start 03/23/21 at 06:00; Stop 03/23/21 at 17:59 Vitals/I & O Vital Sign - Last 24 Hours 03/22/21 03/22/21 03/22/21 03/22/21 10:52 14:13 16:16 19:40 Temp 97.3 98.1 98.6 97.3 98.1 98.6 Pulse 65 82 85 72 Resp 17 15 20 B/P (MAP) 115/56 (75) 101/69 (80) 97/56 (70) Pulse Ox 100 95 94 O2 Delivery Room Air Room Air Room Air 03/22/21 03/22/21 03/23/21 03/23/21 19:50 23:05 03:25 07:00 Temp 97.9 97.7 97.3 97.9 97.7 97.3 Pulse 71 70 82 Resp 20 18 18 B/P (MAP) 121/51 (74) 99/61 (74) 139/92 (108) Pulse Ox 93 92 96 O2 Delivery Room Air Room Air Room Air Room Air 03/23/21 08:00 O2 Delivery Room Air Intake and Output 03/22/21 03/22/21 03/23/21 15:00 23:00 07:00 Intake Total 640 ml 240 ml 0 ml Balance 640 ml 240 ml 0 ml ELBA AUGUSTIN MD Mar 23, 2021 10:37
[2021-03-23 11:00] VITALS: BP 111/72
--- NOTE | 2021-03-23 11:07 | PN ---
DATE: 03/23/2021 SUBJECTIVE: The patient is sitting comfortably in his chair, in no apparent distress. He is scheduled today for left carotid artery endarterectomy. On questioning him, he denied any complaint. Nursing staff did not voice any concerns that he had an eventful night. PHYSICAL EXAMINATION: GENERAL: When I examined him, he looked well and was clearly in no apparent respiratory distress. There is no pallor, jaundice, cyanosis or thyromegaly. No jugular venous distention. No limb edema. VITAL SIGNS: Her heart rate was 82, blood pressure is 139/92, temperature was 97, respiratory rate was 18 and oxygen saturation was 96% on room air. HEAD, EYES, EARS, NOSE, AND THROAT: Normocephalic, atraumatic. NECK: Supple. HEART: Normal first and second heart sounds, no gallop, rub or murmur. CHEST: Clear to auscultation, no crepitation or rhonchi. ABDOMEN: Distended, soft, nontender. NEUROLOGIC: He is definitely much improved, all his dysarthria has completely resolved. All his cranial nerves are intact. He moves extremities without difficulty. His intake and output were incompletely recorded. LABORATORY DATA: His most recent lab work show white cell count 7500, hemoglobin 16, hematocrit 49, MCV 94 and platelet count of 126,000. His chemistry showed a serum sodium 140, potassium 4.8, chloride 102, bicarbonate 29, anion gap of 9, BUN 15, creatinine 1.1. Estimated GFR was 82 mL per minute. His glucose was 96, calcium was 9.2. Total bilirubin, AST, ALT, alkaline phosphatase were normal. Total protein 7.8, albumin was 3.7. ASSESSMENT: 1. Acute cerebrovascular accident involving left middle cerebral artery territory with right sided weakness and dysarthria is much improved. 2. Hypertension, well controlled. 3. Hyperlipidemia. 4. History of left carotid endarterectomy. 5. Carotid artery disease, significant on the left more than right. 6. Tobaccoism. 7. Chronic obstructive pulmonary disease. 8. Possible left lower extremity peripheral arterial disease with intermittent claudication. PLAN: The patient is scheduled for left carotid artery endarterectomy. SOLANGE DR: Rosalind TID: [id number]
--- NOTE | 2021-03-23 11:29 | NUR ---
SS following up with discharge planning. SS reviewed pt chart and discussed with pt RN. Pt is currently on room air. Pt having left carotid endarterectomy today. PT/OT recommended home with home healthcare. Pt accepted on services with [facility], ; fax [phone]. SS will continue to follow for discharge planning.
[2021-03-23] MEDS ORDERED: PROTAMINE 50 MG/5 ML VIAL. IV ONE (12:15)
[2021-03-23] MEDS ORDERED: SURGICEL FIBRILLAR 1X2 EACH. ONE (12:15)
[2021-03-23] MEDS ORDERED: LIDOCAINE 1% Multi-Dose 20 ML VIAL. ONE (12:15)
[2021-03-23] MEDS ORDERED: LIDOCAINE 2% PF 5 ML VIAL. ONE (12:36)
[2021-03-23] MEDS ORDERED: ROCURONIUM 50 MG/5 ML VIAL. ONE ×2 (12:36→13:57)
[2021-03-23] MEDS ORDERED: PROPOFOL 10 MG/ML (20ML) VIAL. IV ONE (12:36)
[2021-03-23] MEDS ORDERED: PHENYLEPHRINE 10 MG/ML VIAL. ONE (12:36)
[2021-03-23] MEDS ORDERED: fentaNYL PF VIAL 100 MCG/2 ML VIAL ONE ×2 (12:37→13:34)
--- NOTE | 2021-03-23 12:41 | PDOC ---
Provider Note Date of Service: DATE: 03/23/21 TIME: 12:38 Provider Note Provider Note 60 Yo M with left sided CVA causing right hemiparesis (now improved) and speech deficit ( slowly improving). He has history of Left CEA with evidence of severe stenosis of left common carotid artery. He has been initiated on dual antiplatelet therapy preoperatively. Plan is to proceed with redo left CEA with extended common carotid endarterectomy. He is neurologically intact with minimal residual speech slurring. Tongue midline and upper and lower extremities strong and symmetric. Normal gait. He has a well healed oblique left neck incision. Discussed risks of procedure including cranial nerve injury, stroke, cardiopulmonary complications, infection, bleeding, and restenosis. Plan to proceed under general anesthesia with shunting. Patient agrees to proceed to reduce risk of recurrent stroke. Justicifation of Admission Dx: Justifications for Admission: Justification of Admission Dx: Yes Stroke - Ischemic: Stroke-Ischemic XANDER MARIA MD Mar 23, 2021 12:41
[2021-03-23] MEDS ORDERED: HEPARIN for IV BOLUS 10,000 UNIT/10 ML VIAL. ONE (13:43)
[2021-03-23] MEDS ORDERED: ONDANSETRON PF 4 MG/2 ML VIAL. ONE (13:58)
[2021-03-23] MEDS ORDERED: DEXAMETHASONE SOD PHOS 4 MG/ML VIAL ONE (13:58)
[2021-03-23] MEDS ORDERED: SEVOFLURANE > 120 MINUTES. IH ONE (15:16)
[2021-03-23] MEDS ORDERED: NEOSTIGMINE METHYLSULFATE 5 MG/5 ML SYRINGE. ONE (15:22)
[2021-03-23] MEDS ORDERED: GLYCOPYRROLATE 1 MG/5 ML VIAL. ONE (15:22)
--- NOTE | 2021-03-23 16:00 | PDOC4 ---
Operative Note Operative Note Preoperative diagnosis: 1. Symptomatic left common carotid artery stenosis, severe 2. Left parietal CVA 3. Tobacco abuse 4. Hypertension 5. Asymptomatic right carotid artery stenosis Postoperative diagnosis: 1. Symptomatic left common carotid artery stenosis, severe 2. Left parietal CVA 3. Tobacco abuse 4. Hypertension 5. Asymptomatic right carotid artery stenosis Anesthesia: GETA Procedure: Left carotid endarterectomy with bovine patch angioplasty (redo) Surgeon: Pa Holly MD Sports Instructor: William Arteaga MD. An conservation assistant was necessary to aid with exposure given the redo operative field. Indication: 60 M with hx of left carotid endarterectomy presented with right hemiparesis and speech disturbance. His symptoms improved significantly over 24-48 hours and he had resolution of his weakness and improved speech. Left parietal infarct confirmed on MRI. CTA demonstrated severe left CCA stenosis (residual disease untreated at initial carotid endaterectomy). Given his symptomatic carotid stenosis, the patient agreed to redo carotid endartectomy to reduce his risk of recurrent stroke. Operative findings: calcific plaque within common carotid artery causing severe stenosis. There was recurrent stenosis from intimal hyperplasia at the proximal aspect of the previous bovine patch. The common carotid just above the level of the clavicle was free of any significant disease. Description of procedure: Patient brought to operative theater and placed supine upon operating room table. preoperative antibiotics were administered. General endotracheal anesthesia was induced. Arterial line was placed by anesthesia. Surgical timeout was performed. The patient was positioned with the neck extended and head rotated away from operative site. The patient was placed in beach chair position. The neck was prepped and draped in standard sterile fashion confirming operative site. An incision was made along the anterior border of SCM extending from just above the clavicle to the previous incision with a lateral curve on its superior portion following the previous incision. The hemant tysma was divided. We then retracted the sternocleidomastoid laterally and exposed the carotid sheath. Sharp dissection was then performed to expose the common carotid artery proximally and this was then encircled with an umbilical tape. There was palpable plaque within the common carotid artery just proximal to the carotid bifurcation however at this level just above the clavicle the carotid artery was soft. Heparin was then administered and a therapeutic ACT confirmed. The vagus nerve is protected during this dissection and was identified posterior to the common carotid artery. There was scar tissue present near the carotid bifurcation from his previous carotid endarterectomy were able to dissect out the previous carotid patch with some difficulty and onto the carotid bifurcation and exposed the external carotid artery as well as the internal carotid artery. One of the external carotid artery branches likely the superior thyroid artery was ligated during this dissection. The external carotid artery was encircled with a vessel loop. Care was taken to dissected sharply along the internal carotid artery and 1 the previous patch to avoid injury to the surrounding nerves. We will we were able to then encircled internal carotid artery just above the carotid bifurcation and did not clearly identify the hypoglossal nerve. The internal and external and common carotid arteries were then clamped andan arteriotomy was then created along the anterior surface of the length of the common carotid artery extending onto the previous bovine patch onto the internal carotid artery. A 10 [place] shunt was then placed first in the common carotid and then the internal carotid artery after fore bleeding was confirmed. The endarterectomy was then performed of the common carotid artery and a calcific focal plaque was identified in and removed as part of the endarterectomy. Additionally there was plaque just proximal to the previous bovine Pericardial patch and there was evidence of intimal hyperplasia at this level which was sharply divided with Finnegan scissors. The transition from the previous patch to the newly endarterectomized common carotid artery was tacked with 6-0 Prolene sutures. There was then no residual plaque within the common carotid artery or the carotid bulb extending onto the internal carotid artery. A bovine patch was then brought onto the field and this was secured with 6-0 Prolene in appropriate orientation with the distal aspect of the patch being sewn onto the previous patch which was left in place. Prior to completion of the running suture the shunt was removed briefly and the carotid artery was flushed. The patch was then completed and the external and common carotid arteries were then unclamped followed by the internal carotid artery. Additional repair sutures were required and there was then good hemostasis noted. A monophasic doppler signal was confirmed in the ICA and high resistance signal in the ECA. Protamine was given and a flat fluted Berry drain was placed deep to platysma and connected to bulb suction. The platysma was then closed with running 2-0 vicryl and 4-0 monocryl for the skin. Dermabond was then applied as a sterile dressing. The patient was then awakened, extubated and a neurologic exam immediately after the procedure demonstrated no deficits and the tongue at midline. EBL: 50 cc Complications: none Specimens: none PA HOLLY MD Mar 23, 2021 16:00
[2021-03-23] MEDS ORDERED: niCARdipine INJ. IV ONE (16:19)
[2021-03-23] MEDS ORDERED: MORPHINE SULFATE 2 MG/ML INJ. ONE (16:26)
[2021-03-23] MEDS ORDERED: 0.9 % SODIUM CHLORIDE 10 ML DISP.SYRIN. IV PRN (16:30)
[2021-03-23] MEDS ORDERED: HYDROcodone/APAP 5/325MG 1 TAB TABLET PO PRN ×2 (17:00)
[2021-03-23] MEDS ORDERED: LABETALOL 20 MG/4 ML DISP.SYRIN. IVP PRN (17:00)
[2021-03-23] MEDS: CITALOPRAM 20 MG TABLET. PO SCH (17:58)
[2021-03-23] MEDS: SPIRONOLACTONE 25 MG TABLET PO SCH (18:03)
[2021-03-23] MEDS: ASPIRIN ENTERIC COATED 81 MG TABLET.DR. PO SCH (18:04)
[2021-03-23 19:30] VITALS: BP 120/67
[2021-03-23] MEDS: risperiDONE 1 MG TABLET. PO SCH (20:10)
[2021-03-23] MEDS: ATORVASTATIN CALCIUM 40 MG TABLET. PO SCH (20:10)
[2021-03-23] MEDS: DOCUSATE SODIUM 100 MG CAPSULE. PO SCH (20:10)
[2021-03-23 22:45] VITALS: BP 123/68
[2021-03-24 02:50] VITALS: BP 113/67
[2021-03-24 06:24] LABS: CALCIUM 8.6 mg/dL (8.5-10.1); CREATININE 1.3 mg/dL (0.7-1.3); GFR 68.1; POTASSIUM 4.9 mmol/L (3.5-5.1)
[2021-03-24 07:00] VITALS: BP 128/65
[2021-03-24 07:41] LABS: BASO % 0 % (0-3); EOS % 0 % (0-3); HEMOGLOBIN 15.1 g/dL (13.0-17.5); LYMPH # 1.5 x10^3/uL (1.0-4.8); LYMPH % 13 % (24-48); MEAN CORPUSCULAR HEMOGLOBIN 32 pg (25-35); MEAN CORPUSCULAR HGB CONC 34 g/dL (31-37); MEAN CORPUSCULAR VOLUME 94 fL (79-100); MONO # 0.8 x10^3/uL (0.0-1.1); MONO % 7 % (0-9); NEUT % 80 % (31-73); PLATELET COUNT 108 x10^3/uL (140-400); RED CELL DISTRIBUTION WIDTH 13.3 % (11.5-14.5); WHITE BLOOD COUNT 11.3 x10^3/uL (4.0-11.0)
[2021-03-24] MEDS: BUMETANIDE 1 MG TABLET. PO SCH ×2 (08:33→14:18)
[2021-03-24] MEDS: ASPIRIN ENTERIC COATED 81 MG TABLET.DR. PO SCH (08:33)
[2021-03-24] MEDS: SPIRONOLACTONE 25 MG TABLET PO SCH (08:34)
[2021-03-24] MEDS: CARVEDILOL 12.5 MG TABLET. PO SCH (08:34)
[2021-03-24] MEDS: CITALOPRAM 20 MG TABLET. PO SCH (08:34)
[2021-03-24] MEDS: DOCUSATE SODIUM 100 MG CAPSULE. PO SCH (08:38)
--- NOTE | 2021-03-24 08:47 | PDOC ---
PROGRESS NOTES Date of Service DATE: 03/24/21 TIME: 08:45 Assessment Status-post redo left carotid endarterectomy on 03/23 Left MCA distribution involving the left parietal operculum area, symptoms from which he has made a rapid recovery Possible right mid right common carotid artery intimal flap/focal dissection, but no clinical evidence of dissection and stroke is on other side 75 percent focal stenosis in the mid right common carotid artery and 70 percent focal stenosis in the mid left common carotid artery, and milder narrowing elsewhere in the common carotid arteries. 50 percent narrowing of the right internal carotid artery origin. No significant narrowing of the left internal carotid artery origin. 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 Hypocalcemia, hypokalemia, hypomagnesemia History of schizophrenia Favorable lipid profile already on a statin Plan Aspirin and statin Home with home health Subjective No complaints Objective Vital Signs Date Time Temp Pulse Resp B/P (MAP) Pulse Ox O2 Delivery O2 Flow Rate FiO2 03/24/21 08:35 Nasal Cannula 2.0 03/24/21 08:34 70 128/65 03/24/21 07:00 97.6 18 93 97.6 Intake and Output 03/24/21 07:00 Intake Total 2070 ml Output Total 143 ml Balance 1927 ml Intake Oral 470 ml IV Total 1600 ml Drainage Total 43 ml Estimated Blood Loss 100 ml PHYSICAL EXAM Alert. Oriented to time, place and person. No dysarthria PERRL. EOMI. CN: no focal findings. Muscle tone: normal. Muscle strength: 5/5, no right pronator drift DTR: 2+ Plantar reflex: Flexor Gait: not examined in bed. Sensory exam: no abnormal findings. No cerebellar signs elicited. Review of Relevant I have reviewed the following items rachael (where applicable) has been applied. Labs Laboratory Tests Test 03/24/21 04:00 White Blood Count 11.3 x10^3/uL (4.0-11.0) Red Blood Count 4.70 x10^6/uL (4.30-5.70) Hemoglobin 15.1 g/dL (13.0-17.5) Hematocrit 44.0 % (39.0-53.0) Mean Corpuscular Volume 94 fL (79-100) Mean Corpuscular Hemoglobin 32 pg (25-35) Mean Corpuscular Hemoglobin Concent 34 g/dL (31-37) Red Cell Distribution Width 13.3 % (11.5-14.5) Platelet Count 108 x10^3/uL (140-400) Neutrophils (%) (Auto) 80 % (31-73) Lymphocytes (%) (Auto) 13 % (24-48) Monocytes (%) (Auto) 7 % (0-9) Eosinophils (%) (Auto) 0 % (0-3) Basophils (%) (Auto) 0 % (0-3) Neutrophils # (Auto) 9.0 x10^3/uL (1.8-7.7) Lymphocytes # (Auto) 1.5 x10^3/uL (1.0-4.8) Monocytes # (Auto) 0.8 x10^3/uL (0.0-1.1) Eosinophils # (Auto) 0.0 x10^3/uL (0.0-0.7) Basophils # (Auto) 0.0 x10^3/uL (0.0-0.2) Sodium Level 135 mmol/L (136-145) Potassium Level 4.9 mmol/L (3.5-5.1) Chloride Level 100 mmol/L (98-107) Carbon Dioxide Level 27 mmol/L (21-32) Anion Gap 8 (6-14) Blood Urea Nitrogen 18 mg/dL (8-26) Creatinine 1.3 mg/dL (0.7-1.3) Estimated GFR (Cockcroft-Gault) 68.1 Glucose Level 119 mg/dL (70-99) Calcium Level 8.6 mg/dL (8.5-10.1) Laboratory Tests Test 03/24/21 04:00 White Blood Count 11.3 x10^3/uL (4.0-11.0) Red Blood Count 4.70 x10^6/uL (4.30-5.70) Hemoglobin 15.1 g/dL (13.0-17.5) Hematocrit 44.0 % (39.0-53.0) Mean Corpuscular Volume 94 fL (79-100) Mean Corpuscular Hemoglobin 32 pg (25-35) Mean Corpuscular Hemoglobin Concent 34 g/dL (31-37) Red Cell Distribution Width 13.3 % (11.5-14.5) Platelet Count 108 x10^3/uL (140-400) Neutrophils (%) (Auto) 80 % (31-73) Lymphocytes (%) (Auto) 13 % (24-48) Monocytes (%) (Auto) 7 % (0-9) Eosinophils (%) (Auto) 0 % (0-3) Basophils (%) (Auto) 0 % (0-3) Neutrophils # (Auto) 9.0 x10^3/uL (1.8-7.7) Lymphocytes # (Auto) 1.5 x10^3/uL (1.0-4.8) Monocytes # (Auto) 0.8 x10^3/uL (0.0-1.1) Eosinophils # (Auto) 0.0 x10^3/uL (0.0-0.7) Basophils # (Auto) 0.0 x10^3/uL (0.0-0.2) Sodium Level 135 mmol/L (136-145) Potassium Level 4.9 mmol/L (3.5-5.1) Chloride Level 100 mmol/L (98-107) Carbon Dioxide Level 27 mmol/L (21-32) Anion Gap 8 (6-14) Blood Urea Nitrogen 18 mg/dL (8-26) Creatinine 1.3 mg/dL (0.7-1.3) Estimated GFR (Cockcroft-Gault) 68.1 Glucose Level 119 mg/dL (70-99) Calcium Level 8.6 mg/dL (8.5-10.1) Medications Current Medications Info (FLU VACCINE SCREEN per RX) 1 each 1X MC ; Start 03/19/21 at 15:45; Stop 03/19/21 at 07:28; Status DC Heparin Sodium/ Dextrose 250 ml @ 15.7 mls/hr CONT PRN IV PER PROTOCOL Last administered on 03/19/21at 04:48; Start 03/18/21 at 16:00; Stop 03/19/21 at 10:46; Status DC Heparin Sodium (Porcine) (Heparin Sodium) 2,950 unit PRN Q6HRS PRN IV FOR UFH LEVEL LESS THAN 0.2; Start 03/18/21 at 16:00; Stop 03/19/21 at 10:46; Status DC Heparin Sodium (Porcine) (Heparin Sodium) 1,450 unit PRN Q6HRS PRN IV FOR UFH LEVEL 0.2 - 0.29; Start 03/18/21 at 16:00; Stop 03/19/21 at 10:46; Status DC Aspirin (Ecotrin) 81 mg DAILYWBKFT PO ; Start 03/19/21 at 08:00; Stop 03/19/21 at 12:43; Status DC Influenza Virus Vaccine Quadrival (Flulaval Quad 8523-1847 Syringe) 0.5 ml ONCE ONCE VAX IM ; Start 03/20/21 at 09:00; Stop 03/20/21 at 09:01; Status DC Clopidogrel Bisulfate (Plavix) 300 mg 1X ONCE PO ; Start 03/19/21 at 11:00; Stop 03/19/21 at 12:40; Status DC Clopidogrel Bisulfate (Plavix) 75 mg DAILYWBKFT PO ; Start 03/20/21 at 08:00; Stop 03/19/21 at 12:40; Status DC Atorvastatin Calcium (Lipitor) 40 mg QHS PO Last administered on 03/23/21at 20:10; Start 03/19/21 at 21:00 Aspirin (Aspirin Rectal Supp) 300 mg DAILY UT ; Start 03/19/21 at 12:45; Stop 03/19/21 at 12:59; Status DC Aspirin (Ecotrin) 81 mg DAILYWBKFT PO Last administered on 03/24/21at 08:33; Start 03/19/21 at 13:00 Bumetanide (Bumex) 1 mg BID92 PO Last administered on 03/24/21 08:33; Start 03/20/21 at 09:00 Citalopram Hydrobromide (CeleXA) 20 mg DAILY PO Last administered on 03/24/21 08:34; Start 03/20/21 at 09:00 Carvedilol (Coreg) 12.5 mg BIDWMEALS PO Last administered on 03/24/21 08:34; Start 03/19/21 at 20:00 Risperidone (RisperDAL) 3 mg QHS PO Last administered on 03/23/21at 20:10; Start 03/19/21 at 21:00 Spironolactone (Aldactone) 50 mg DAILY PO Last administered on 03/24/21 08:34; Start 03/20/21 at 09:00 Fentanyl Citrate (Fentanyl 2ml Vial) 25 mcg PRN Q5MIN PRN IVP MILD PAIN 1-3; Start 03/23/21 at 06:00; Stop 03/24/21 at 05:59; Status DC Fentanyl Citrate (Fentanyl 2ml Vial) 50 mcg PRN Q5MIN PRN IVP MODERATE PAIN 4- 6; Start 03/23/21 at 06:00; Stop 03/24/21 at 05:59; Status DC Morphine Sulfate (Morphine Sulfate) 1 mg PRN Q10MIN PRN IVP SEVERE PAIN 7-10 Last administered on 03/23/21at 16:27; Start 03/23/21 at 06:00; Stop 03/24/21 at 05:59; Status DC Ringer's Solution 1,000 ml @ 30 mls/hr Q24H IV Last administered on 03/23/21at 12:34; Start 03/23/21 at 06:00; Stop 03/23/21 at 17:59; Status DC Hydromorphone HCl (Dilaudid) 0.5 mg PRN Q10MIN PRN IVP SEVERE PAIN 7-10, 2nd CHOICE; Start 03/23/21 at 06:00; Stop 03/24/21 at 05:59; Status DC Heparin Sodium (Porcine) 5000 unit/Ringer's Solution 505 ml @ 505 mls/hr 1X ONCE IRR Last administered on 03/23/21at 13:33; Start 03/23/21 at 06:00; Stop 03/23/21 at 06:59; Status DC Cefazolin Sodium 1 gm/Sodium Chloride 500 ml @ 500 mls/hr 1X ONCE IRR Last administered on 03/23/21at 13:33; Start 03/23/21 at 06:00; Stop 03/23/21 at 06:59; Status DC Lidocaine HCl (Lidocaine 1% 20ml Vial) 20 ml STK-MED ONCE .ROUTE ; Start 03/23/21 at 12:15; Stop 03/23/21 at 12:15; Status DC Cellulose (Surgicel Fibrillar 1x2) 1 each STK-MED ONCE .ROUTE ; Start 03/23/21 at 12:15; Stop 03/23/21 at 12:15; Status DC Protamine Sulfate (Protamine) 50 mg STK-MED ONCE IV ; Start 03/23/21 at 12:15; Stop 03/23/21 at 12:15; Status DC Cefazolin Sodium/ Dextrose 50 ml @ 100 mls/hr 1X ONCE IV Last administered on 03/23/21at 13:19; Start 03/23/21 at 12:30; Stop 03/23/21 at 12:59; Status DC Lidocaine HCl (Lidocaine Pf 2% Vial) 5 ml STK-MED ONCE .ROUTE ; Start 03/23/21 at 12:36; Stop 03/23/21 at 12:36; Status DC Propofol (Diprivan) 200 mg STK-MED ONCE IV ; Start 03/23/21 at 12:36; Stop 03/23/21 at 12:36; Status DC Phenylephrine HCl (Damion-Synephrine Inj) 10 mg STK-MED ONCE .ROUTE ; Start 03/23/21 at 12:36; Stop 03/23/21 at 12:37; Status DC Rocuronium Willards (Zemuron) 50 mg STK-MED ONCE .ROUTE ; Start 03/23/21 at 12:36; Stop 03/23/21 at 12:37; Status DC Fentanyl Citrate (Fentanyl 2ml Vial) 100 mcg STK-MED ONCE .ROUTE ; Start 03/23/21 at 12:37; Stop 03/23/21 at 12:37; Status DC Fentanyl Citrate (Fentanyl 2ml Vial) 100 mcg STK-MED ONCE .ROUTE ; Start 03/23/21 at 13:34; Stop 03/23/21 at 13:34; Status DC Heparin Sodium (Porcine) (Heparin Sodium) 10,000 unit STK-MED ONCE .ROUTE ; Start 03/23/21 at 13:43; Stop 03/23/21 at 13:43; Status DC Rocuronium Willards (Zemuron) 50 mg STK-MED ONCE .ROUTE ; Start 03/23/21 at 13:57; Stop 03/23/21 at 13:57; Status DC Ondansetron HCl (Zofran) 4 mg STK-MED ONCE .ROUTE ; Start 03/23/21 at 13:58; Stop 03/23/21 at 13:59; Status DC Dexamethasone Sodium Phosphate (Decadron) 4 mg STK-MED ONCE .ROUTE ; Start 03/23/21 at 13:58; Stop 03/23/21 at 13:59; Status DC Sevoflurane (Ultane) 90 ml STK-MED ONCE IH ; Start 03/23/21 at 15:16; Stop 03/23/21 at 15:16; Status DC Neostigmine Willards (Neostigmine Methylsulfate) 5 mg STK-MED ONCE .ROUTE ; Start 03/23/21 at 15:22; Stop 03/23/21 at 15:22; Status DC Glycopyrrolate (Robinul) 1 mg STK-MED ONCE .ROUTE ; Start 03/23/21 at 15:22; Stop 03/23/21 at 15:23; Status DC Nicardipine HCl (Cardene) 25 mg STK-MED ONCE IV ; Start 03/23/21 at 16:19; Stop 03/23/21 at 16:20; Status DC Morphine Sulfate (Morphine Sulfate) 2 mg STK-MED ONCE .ROUTE ; Start 03/23/21 at 16:26; Stop 03/23/21 at 16:26; Status DC Sodium Chloride (Normal Saline Flush) 3 ml QSHIFT PRN IV AFTER MEDS AND BLOOD DRAWS; Start 03/23/21 at 16:30 Docusate Sodium (Colace) 100 mg BID PO ; Start 03/23/21 at 21:00 Cefazolin Sodium/ Dextrose 50 ml @ 100 mls/hr Q6H IV Last administered on 03/24/21at 07:18; Start 03/23/21 at 19:00; Stop 03/24/21 at 07:29; Status DC Acetaminophen/ Hydrocodone Bitart (Lortab 5/325) 2 tab PRN Q4HRS PRN PO SEVERE PAIN Last administered on 03/23/21at 17:58; Start 03/23/21 at 17:00 Acetaminophen/ Hydrocodone Bitart (Lortab 5/325) 1 tab PRN Q4HRS PRN PO MILD- MODERATE PAIN Last administered on 03/24/21at 08:35; Start 03/23/21 at 17:00 Labetalol HCl (Normodyne Iv Push) 10 mg PRN Q2HR PRN IVP HYPERTENSION; Start 03/23/21 at 17:00 Active Scripts Active Reported Captopril 25 Mg Tablet 25 Mg PO BID Bumetanide 1 Mg Tablet 1 Mg PO BID Risperdal (Risperidone) 3 Mg Tablet 3 Mg PO QHS Carvedilol 25 Mg Tablet 12.5 Mg PO BIDWMEALS Spironolactone 50 Mg Tablet 50 Mg PO DAILY Citalopram Hbr (Citalopram Hydrobromide) 20 Mg Tablet 20 Mg PO DAILY Atorvastatin Calcium 80 Mg Tablet 80 Mg PO QHS Vitals/I & O Vital Sign - Last 24 Hours 03/23/21 03/23/21 03/23/21 03/23/21 11:00 12:34 16:02 16:22 Temp 98.4 98.0 98.0 98.4 98.0 98.0 Pulse 71 69 76 72 Resp 18 22 16 16 B/P (MAP) 111/72 (85) 124/61 152/67 156/70 Pulse Ox 96 93 93 94 O2 Delivery Room Air Room Air Simple Mask Simple Mask O2 Flow Rate 6 6 03/23/21 03/23/21 03/23/21 03/23/21 16:27 16:35 16:50 17:10 Temp 98.0 98.0 Pulse 70 70 64 Resp 16 20 B/P (MAP) 124/66 117/61 125/80 Pulse Ox 94 93 94 90 O2 Delivery Simple Mask Simple Mask Nasal Cannula O2 Flow Rate 6.0 10 2 2 03/23/21 03/23/21 03/23/21 03/23/21 17:20 17:42 17:58 18:03 Pulse 64 B/P (MAP) 125/80 Pulse Ox 90 90 O2 Delivery Nasal Cannula Nasal Cannula Nasal Cannula O2 Flow Rate 2 2.0 2.0 03/23/21 03/23/21 03/23/21 03/23/21 19:28 19:30 19:50 20:00 Temp 97.9 97.9 Pulse 84 Resp 20 B/P (MAP) 120/67 (84) Pulse Ox 90 85 92 O2 Delivery Nasal Cannula Room Air Nasal Cannula Room Air O2 Flow Rate 2.0 2.0 03/23/21 03/24/21 03/24/21 03/24/21 22:45 02:50 07:00 08:34 Temp 98.4 97.9 97.6 98.4 97.9 97.6 Pulse 74 74 70 70 Resp 20 18 18 B/P (MAP) 123/68 (86) 113/67 (82) 128/65 (86) 128/65 Pulse Ox 91 92 93 O2 Delivery Nasal Cannula Nasal Cannula Nasal Cannula O2 Flow Rate 3.0 3.0 2.0 03/24/21 08:35 O2 Delivery Nasal Cannula O2 Flow Rate 2.0 Intake and Output 03/23/21 03/23/21 03/24/21 15:00 23:00 07:00 Intake Total 0 ml 1950 ml 120 ml Output Total 103 ml 40 ml Balance 0 ml 1847 ml 80 ml Justicifation of Admission Dx: Justifications for Admission: Justification of Admission Dx: Yes Stroke - Ischemic: Stroke-Ischemic NADIA FISCHER MD Mar 24, 2021 08:47
--- NOTE | 2021-03-24 10:51 | SNU/HH DC ---
DISCHARGE WITH HOME HEALTH DISCHARGE INFORMATION: Discharge Date: Mar 24, 2021 Final Diagnosis: right sided weakness Left sided carotid artery stenos s/p left carotid artery endartectomy Condition on Discharge: Stable CODE STATUS: Code Status: Full HOME HEALTH: Face to Face: I certify this patient is under my care and that I, or a nurse practitioner or donna gifford's evaluation assistant working with me, had a face to face encounter that meets the physician face to face encounter requirements with this patient on 03/24/2021 Medical Complications: CVA Prison For: Medication Management RN For Eval/Treatment: Yes Physical Therapy For: Evalulation/Treatment Occupational Therapy For: Evaluation/Treatment Pt Meets Homebound Status: Unsteady balance w/ amb, CERTIFICATION STATEMENT: Certification Statement: Certification Statement: Based on the above finding, I certify that this patient is confined to the home and needs intermittent chcf care, physical therapy and/or speech therapy, or continues to need occupational therapy.~ This patient is under my care, and I have initiated the establishment of the plan of care.~ This patient will be followed by myself or a community physician who will periodically review the plan of care. Home Meds Reported Medications Captopril (CAPTOPRIL) 25 Mg Tablet, 25 MG PO BID for , TAB 03/19/21 Bumetanide (BUMETANIDE) 1 Mg Tablet, 1 MG PO BID for EDEMA, TAB 03/18/21 Risperidone (RISPERDAL) 3 Mg Tablet, 3 MG PO QHS for MOOD STABILIZER, TAB 03/18/21 Carvedilol (CARVEDILOL) 25 Mg Tablet, 12.5 MG PO BIDWMEALS for CARDIAC, TAB 03/18/21 Spironolactone (SPIRONOLACTONE) 50 Mg Tablet, 50 MG PO DAILY for HTN, TAB 03/18/21 Citalopram Hydrobromide (CITALOPRAM HBR) 20 Mg Tablet, 20 MG PO DAILY for DEPRESSION, TAB 03/18/21 Atorvastatin Calcium (Atorvastatin Calcium) 80 Mg Tablet, 80 MG PO QHS for FOR HIGH CHOLESTEROL, TAB 03/18/21 HARRISON DORSEY MD Mar 24, 2021 10:51
[2021-03-24 10:59] VITALS: BP 111/67
--- NOTE | 2021-03-24 11:13 | NUR ---
SS following up with discharge planning. SS reviewed pt chart and discussed with pt RN. Pt is currently requiring oxygen at two liters nasal canula. Pt had Carotid Endarterectomy on 03/23/2021. PT/OT recommended home with home healthcare. Discharge orders received for home with home healthcare. Pt accepted on services with [facility]. Discharge orders sent to [facility]. Six minute walk ordered to assess oxygen needs. SS will continue to follow for discharge planning.
[2021-03-24] MEDS ORDERED: HYDR-2761 PO (11:29)
--- NOTE | 2021-03-24 11:43 | PDOC ---
Provider Note Date of Service: DATE: 03/24/21 TIME: 11:31 Provider Note Provider Note Vascular S: Patient seen and examined in room with Dr. Morris. Patient is sitting in chair and is without complaints. O: Awake and alert Vital signs stable, afebrile Neck incision is dry and intact no hematoma or swelling. Drain is removed. Facilities Maintenance Supervisor are equal, Moving all extremities equally. Speech is improving. No facial asymmetry. A/P: POD #1 Redo left common carotid artery endarterectomy with bovine pericardial patch angioplasty. Patient is doing well, he may discharge from our standpoint. Discussed with Dr. Gallo. Follow up as scheduled. Follow post instructions. Justicifation of Admission Dx: Justifications for Admission: Justification of Admission Dx: Yes Stroke - Ischemic: Stroke-Ischemic [facility] [employer] [employer] TESTER Mar 24, 2021 11:43
--- NOTE | 2021-03-24 12:32 | PDOC ---
ML ARCE STEAM SHOVEL RUNNER 03/24/21 1232: CARDIO Progress Notes Date and Time Date of Service 03/24/2021 Time of Evaluation 1200 Subjective Subjective: No Chest Pain, No shortness of breath, No Palpitations Vitals Vitals Vital Signs Date Time Temp Pulse Resp B/P (MAP) Pulse Ox O2 Delivery O2 Flow Rate FiO2 03/24/21 10:59 97.4 80 18 111/67 (82) 93 Nasal Cannula 2.0 97.4 Weight Weight [ ] Input and Output Intake and Output Intake and Output 03/24/21 07:00 Intake Total 2070 ml Output Total 143 ml Balance 1927 ml Intake Oral 470 ml IV Total 1600 ml Drainage Total 43 ml Estimated Blood Loss 100 ml Laboratory Labs Laboratory Tests Test 03/23/21 14:56 03/23/21 15:56 03/24/21 04:00 Activated Clotting Time 280 sec (92-181) 235 sec (92-181) White Blood Count 11.3 x10^3/uL (4.0-11.0) Red Blood Count 4.70 x10^6/uL (4.30-5.70) Hemoglobin 15.1 g/dL (13.0-17.5) Hematocrit 44.0 % (39.0-53.0) Mean Corpuscular Volume 94 fL (79-100) Mean Corpuscular Hemoglobin 32 pg (25-35) Mean Corpuscular Hemoglobin Concent 34 g/dL (31-37) Red Cell Distribution Width 13.3 % (11.5-14.5) Platelet Count 108 x10^3/uL (140-400) Neutrophils (%) (Auto) 80 % (31-73) Lymphocytes (%) (Auto) 13 % (24-48) Monocytes (%) (Auto) 7 % (0-9) Eosinophils (%) (Auto) 0 % (0-3) Basophils (%) (Auto) 0 % (0-3) Neutrophils # (Auto) 9.0 x10^3/uL (1.8-7.7) Lymphocytes # (Auto) 1.5 x10^3/uL (1.0-4.8) Monocytes # (Auto) 0.8 x10^3/uL (0.0-1.1) Eosinophils # (Auto) 0.0 x10^3/uL (0.0-0.7) Basophils # (Auto) 0.0 x10^3/uL (0.0-0.2) Sodium Level 135 mmol/L (136-145) Potassium Level 4.9 mmol/L (3.5-5.1) Chloride Level 100 mmol/L (98-107) Carbon Dioxide Level 27 mmol/L (21-32) Anion Gap 8 (6-14) Blood Urea Nitrogen 18 mg/dL (8-26) Creatinine 1.3 mg/dL (0.7-1.3) Estimated GFR (Cockcroft-Gault) 68.1 Glucose Level 119 mg/dL (70-99) Calcium Level 8.6 mg/dL (8.5-10.1) Physical Exam HEENT: Neck Supple W Full Motion Chest: Symmetric LUNGS: Clear to Auscultation Heart: S1S2, RRR (SR) Abdomen: Soft N/T Extremities: No Edema, No Calf Tenderness, Other (diminished pedal pulses) Neurology: alert, oriented, follow commands Assessment Assessment 1. 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 possibly from significant carotid artery disease 2. HTN: controlled. EF and WM nml, no definitive PFO/ASD 3. HLP 4. S/P left carotid endarterectomy with bovine patch angioplasty (redo) POD#1 did well per vascular 5. Carotid artery disease: significant to left than right 6. Tobaccoism with possible COPD 7. Possible LE PAD: with intermittent claudication with ambulation, no wounds Recommendations 1. Continue post op treatment 2. Secondary prevention measures 3. Follow up in office 4. Will address LE PAD as an outpt Justicifation of Admission Dx: Justifications for Admission: Justification of Admission Dx: Yes Stroke - Ischemic: Stroke-Ischemic ELBA AUGUSTIN MD 03/24/21 1506: CARDIO Progress Notes Assessment Assessment Patient seen and examined. Agree with DOMESTIC VIOLENCE ADVOCATE's assessment and plan. Acute CVA, left MCA territory Carotid artery stenosis s/p redo left CEA with bovine patch angioplasty Continue postop care per vascular surgery team Follow-up with our office as scheduled ML ARCE APRN Mar 24, 2021 12:32 ELBA AUGUSTIN MD Mar 24, 2021 15:06
[2021-03-24] MEDS ORDERED: ASPI-886 PO (12:36)
[2021-03-24 14:21] VITALS: BP 132/64
--- NOTE | 2021-03-24 15:55 | NUR ---
Discharge Note: AYDEN REHMAN [address] [place] [address] Discharge instructions and discharge home medications reviewed with Patient and a copy given. All questions have been answered and understanding verbalized. The following instructions and handouts were given: discharge instructions, med list, stroke education, carotid endarterectomy education Discontinued lines and drains: Peripheral IV intact. Patient discharged to Home w/services with Family Member via Wheelchair at 1555.
== END 2021-03-24 15:55 | disposition home health service (06) | DRG 38 ==
LOC: 6 SOUTH 15:11
PROVIDERS: ADMIT Internal Medicine; ATTEND Internal Medicine
PROC: 03UJ0JZ Supplement Left Common Carotid Artery with Synthetic Substitute, Open Approach (ICD-10-PCS; 2021-03-23)
PROC: 03CJ0ZZ Extirpation of Matter from Left Common Carotid Artery, Open Approach (ICD-10-PCS; principal; 2021-03-23 13:00)
DX: I63.512 Cerebral infarction due to unspecified occlusion or stenosis of left middle cerebral artery (principal); G81.91 Hemiplegia, unspecified affecting right dominant side; E78.5 Hyperlipidemia, unspecified; E83.42 Hypomagnesemia; E83.51 Hypocalcemia; E87.6 Hypokalemia; F17.210 Nicotine dependence, cigarettes, uncomplicated; F20.9 Schizophrenia, unspecified; I11.0 Hypertensive heart disease with heart failure; I25.10 Atherosclerotic heart disease of native coronary artery without angina pectoris; I50.9 Heart failure, unspecified; I65.23 Occlusion and stenosis of bilateral carotid arteries; J43.9 Emphysema, unspecified; R29.810 Facial weakness; R47.01 Aphasia; Z56.0 Unemployment, unspecified; Z82.49 Family history of ischemic heart disease and other diseases of the circulatory system; Z86.718 Personal history of other venous thrombosis and embolism; Z86.73 Personal history of transient ischemic attack (TIA), and cerebral infarction without residual deficits; F32.A Depression, unspecified; F41.9 Anxiety disorder, unspecified; M19.90 Unspecified osteoarthritis, unspecified site; I73.9 Peripheral vascular disease, unspecified
CPT/HCPCS: 36415; 70551; 80048; 80053; 80061; 83036; 85025; 85347; 85520; 86850; 86900; 86901; 93306; 94618; A4351; A4364; A4556; A4930; A6257; A6402; C1751; J0690; J1100; J1644; J2270; J2370; J2405; J2704; J2710; J2720; J3010; J3490; J7040; J7120; 92526-GN; 92610-GN; 97116-GP; 97530-GP; 97535-GO; G0378

== ENCOUNTER 2021-07-10 06:55 | Outpatient (CLI) | payer MEDICARE ==
[2021-07-10] VITALS (14 sets, daily range): BP systolic 91–116; BP diastolic 2–66
[~2021-07-10] VITALS: Ht 180.3 cm; Wt 97.7 kg
[~2021-07-10 06:55] MED LIST: ASPI-886 PO; ATOR80TA72 PO; BUME1TAB3 PO; CAPT25TA3 PO; CARV25TA2 PO; CITA20TA6 PO; HYDR-2761 PO; IODIXANOL 320 200 ML in NS 200 ML IART ONE; RISP3TAB23 PO; SPIR50TA4 PO
[2021-07-10] MEDS ORDERED: LIDOCAINE 1% PF 2 ML VIAL. ONE (07:56)
[2021-07-10] MEDS ORDERED: IODIXANOL 320 200 ML in NS 200 ML IART ONE (08:00)
[2021-07-10 08:01] LABS: HEMATOCRIT 47.7 % (39.0-53.0); HEMOGLOBIN 16.1 g/dL (13.0-17.5); RED BLOOD COUNT 5.15 x10^6/uL (4.30-5.70); RED CELL DISTRIBUTION WIDTH 13.8 % (11.5-14.5); WHITE BLOOD COUNT 6.5 x10^3/uL (4.0-11.0)
[2021-07-10 08:09] LABS: CALCIUM 8.8 mg/dL (8.5-10.1); CREATININE 1.1 mg/dL (0.7-1.3); GFR 82.6; POTASSIUM 4.5 mmol/L (3.5-5.1)
[2021-07-10 08:10] LABS: PROTHROMBIN TIME PATIENT 14.4 SEC (11.7-14.0)
[2021-07-10] MEDS ORDERED: OMEG100021 PO (08:21)
[2021-07-10] MEDS ORDERED: MULT-496 PO (08:21)
[2021-07-10] MEDS ORDERED: MIDAZOLAM HCL/PF 2 MG/2 ML VIAL. ONE (08:32)
[2021-07-10] MEDS ORDERED: fentaNYL PF VIAL 100 MCG/2 ML VIAL ONE (08:32)
[2021-07-10] MEDS ORDERED: VERAPAMIL 5 MG/2 ML VIAL. ONE (08:33)
[2021-07-10] MEDS ORDERED: HEPARIN for IV BOLUS 10,000 UNIT/10 ML VIAL. ONE (08:33)
[2021-07-10] MEDS ORDERED: NITROGLYCERIN 200 MCG/2 ML SYRINGE FOR CATH/VASC LAB. ONE (08:33)
[2021-07-10] MEDS ORDERED: VERAPAMIL 5 MG/2 ML VIAL. IART ONE (09:15)
[2021-07-10] MEDS ORDERED: MIDAZOLAM HCL/PF 2 MG/2 ML VIAL. IV ONE (09:15)
[2021-07-10] MEDS ORDERED: HEPARIN for IV BOLUS 10,000 UNIT/10 ML VIAL. IART ONE (09:15)
[2021-07-10] MEDS ORDERED: NITROGLYCERIN 200 MCG/2 ML SYRINGE FOR CATH/VASC LAB. IART ONE (09:15)
[2021-07-10] MEDS ORDERED: LIDOCAINE 1% PF 2 ML VIAL. INJ ONE (09:15)
[2021-07-10] MEDS ORDERED: fentaNYL PF VIAL 100 MCG/2 ML VIAL IV ONE (09:15)
--- NOTE | 2021-07-10 09:21 | PDOC ---
MODERATE SEDATION ASSESSMENT RISKS/ALTERNATIVES Risks/Alternatives Risks and alternatives of this type of sedation and procedure discussed with: RISK/ALTERNATIVES: Patient H & P ON CHART H & P H & P on chart and reviewed for co-morbid conditions and appropriate labs. H&P ON CHART: Yes STATUS PREG STATUS ASSESSED: N/A MEDS/ALLERGIES REVIEWED Meds/Allergies Reviewed Medications and Allergies including time and route of recently administered narcotics and sedatives. MEDS/ALLERGIES REVIEWED: Yes ASA RATING ASA RATING: III AIRWAY ASSESSMENT Airway Assessment Airway patency, oral function limitations, presence of caps, crowns, dentures, partials, and ability to extend neck assessed. AIRWAY ASSESSMENT: Yes MALLAMPATI SCORE MALLAMPATI SCORE: II PRE-SEDATION ASSESSMENT PRE-SEDATION ASSESSMENT: Yes ELBA AUGUSTIN MD Jul 10, 2021 09:21
[2021-07-10] MEDS ORDERED: NITROGLYCERIN SUBLINGUAL 0.4 MG BOTTLE OF 25. SL PRN (09:30)
[2021-07-10] MEDS ORDERED: IV 1/2 NORMAL SALINE 1,000 ML IV SCH (09:30)
[2021-07-10] MEDS ORDERED: IOHEXOL 350 MG/ML 100 ML VIAL. IV ONE (10:00)
--- NOTE | 2021-07-10 10:14 | CARD ---
MR#: [id number] Date of Study: 07/10/2021 Ordering Physician: ELBA RUSSELL, Referring Physician: ELBA RUSSELL, Tech: Hannaherbert Lazcano APPROVED REPORT Patient StatusOUT-PATIENT Balance Truing Inspector: Hanna Lazcano Procedure(s) performed: Aortogram with bilateral lower extremity runoff via right transradial approac h fl time: 3.1 min dose: 31 gycm2 contrast: 18 ml moderate sedation: 36 minutes INDICATION FOR PROCEDURE The indication(s) include : Peripheral artery disease with claudication. CASE TECHNIQUE After explaining the risks, benefits, and alternative options, informed consent was obtained from the patient. IV conscious sedation was used throughout procedure with appropriate monitoring and was per formed in the presence of a registered nurse who was an independent trained observer other than the donna gifford performing the procedure. During this case, Fluoroscopy and low osmolar contrast were used f or imaging. Specimen(s) Removed: No Estimated Blood loss: 10 cc's. PROCEDURE NARRATIVE After explaining the risk, benefits and alternative options, informed consent was obtained from patie nt. Patient was brought to the cardiac Probation Agent and his right wrist was prepped and draped in the us ual fashion after confirming a positive modified Christiano's test. Arterial access was obtained in the r ight radial artery and a 6 Beninese sheath was inserted. 4 Beninese R2P PV multicurve catheter was then advanced under fluoroscopic guidance and with the tip positioned in the descending aorta aortogram wi th bilateral lower extremity runoff was performed. Patient was found to have 100% chronic total occlusion of previously placed endovascular stent graft (EVAR) extending from infrarenal abdominal aorta into bilateral common iliac arteries. The renal art eries bilaterally did not show any significant stenosis. There was no flow visualized in common narinder c, external iliac or common femoral arteries. We decided to obtain CT angiogram for better distal vi sualization. Patient tolerated the procedure well. Hemostasis was achieved using TR band. There we re no immediate complications. 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 Recommendations CT angiogram for better distal visualization and vascular surgery consultation. Signed by : Elba Russell, Electronically Approved : 07/10/2021 10:14:13
[2021-07-10] MEDS ORDERED: CONTRAST GIVEN. MC PRN (10:15)
--- NOTE | 2021-07-10 11:42 | RAD ---
CT angiography of the pelvis, and bilateral lower extremities 07/10/2021 INDICATION: Occluded aortoiliac stent graft on angiography from earlier today TECHNIQUE: Multidetector CT imaging of the pelvis, and bilateral lower extremities was performed foll owing the administration of IV contrast. 3-D reconstructions of pelvic and lower extremity vasculatur e were created on an independent workstation FINDINGS: Visualized upper abdominal aorta is unremarkable. Celiac artery is patent proximally. There is bulky calcification at the ostium of the SFA narrowing the lumen by approximately 50%. The bilate ral renal arteries questionable bandlike narrowing at the ostium of the left renal artery. There is a n infrarenal abdominal aortic stent graft which is completely occluded. Both limbs were occluded. [place] nt graft extends to the common iliac arteries. Markedly hypertrophied inferior epigastric arteries are seen with some reconstitution at the level of the common femoral arteries. 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 The right external iliac artery is chronically occluded. Dense calcification high-grade stenosis in the proxima l right internal iliac artery is seen. There is dense calcification throughout the right common femoral artery with associated probable high -grade stenosis. Some reconstitution is seen. Though the right SFA then promptly occludes with weak r econstitution at the level of the adductor canal. Right popliteal artery appears be grossly patent. T here is filling of all 3 runoff vessels to the mid leg which are not visualized below this point, at least in part due to the severity of inflow disease. On the left the external iliac artery is also chronically occluded. The common femoral artery is dens [place] calcified with high-grade stenosis. The left superficial femoral artery demonstrates multifocal c alcification and areas of probable at least mild stenosis but appears to remain patent. There is occl usion of the popliteal artery at the level of the knee. There is reconstitution of the distal poplite al artery and tibial peroneal trunk. Calcification within proximal tibial vessels all over all 3 vess els. Be patent to the distal leg, similar to contralateral side. Visualized solid viscera of the abdomen demonstrate no acute abnormality. No bowel obstruction is see n. No free fluid or free air seen in the interim pelvis. IMPRESSION: 1. 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 2. 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 High-grade stenosis of a calcified high-grade stenoses within the bilateral common femoral arterie s. 4.. 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 Multiple mild tandem stenoses in the left SFA with occlusion of the popliteal artery at the level the knee. 6. All 3 tibial vessels. Be patent to the mid leg, but evaluation of the more distal runoff arteries is limited secondary to severity of inflow disease. CT DOSING PQRS STATEMENT: One or more of the following individualized dose reduction techniques were utilized for this examinat ion: 1. Automated exposure control 2. Adjustment of the mA and/or kV according to patient size 3. Use of iterative reconstruction technique Electronically signed by: Jonathan Gabriel MD (07/10/2021 11:40 AM) [id number]
--- NOTE | 2021-07-10 15:55 | NUR ---
Discharge Note: AYDEN REHMAN Discharge instructions and discharge home medications reviewed with Patient and a copy given. All questions have been answered and understanding verbalized. Radiial site remains clean and dry, armboard in place The following instructions and handouts were given: radial site care, sedation Discontinued lines and drains: Peripheral IV intact. Patient discharged to Home or Self Care with Family Member via Ambulated LARA RN
== END 2021-07-10 15:55 | disposition home or self-care (01) ==
LOC: CCL 06:55
PROVIDERS: ATTEND Internal Medicine Cardiovascular Disease
DX: I73.9 Peripheral vascular disease, unspecified (principal); I25.10 Atherosclerotic heart disease of native coronary artery without angina pectoris; I10 Essential (primary) hypertension; E78.00 Pure hypercholesterolemia, unspecified; J43.9 Emphysema, unspecified; F32.9 Major depressive disorder, single episode, unspecified; F17.210 Nicotine dependence, cigarettes, uncomplicated; Z79.82 Long term (current) use of aspirin; Z79.899 Other long term (current) drug therapy; Z98.890 Other specified postprocedural states
CPT/HCPCS: 36200; 36415; 75625; 75635; 75716; 76937; 80048; 85027; 85610; 99152; 99153; C1769; C1894; J1644; J2250; J3010; J3490; J7050; Q9967; J7030